=== PATIENT | female | born 1995 | race Hispanic/Latino ===

== ENCOUNTER 2017-08-10 20:35 | Emergency (ER) | payer MEDICAID ==
--- NOTE | 2017-08-10 20:43 | EDM.PDOC ---
ED HPI GENERAL MEDICAL PROBLEM - General Chief Complaint: Burn Stated Complaint: PT BURN LT HAND Time Seen by Provider: 08/10/17 20:43 Source of Information: Reports: Patient - History of Present Illness INITIAL COMMENTS - FREE TEXT/NARRATIVE: HISTORY AND PHYSICAL: History of present illness: [Patient was pouring hot cooking grease/oil into a soup can just prior to arrival, the can overflowed burning the palmar aspect of the second third fourth digits second-degree with blistering sensation intact/painful. No circumferential madesn concerning the digits unaffected above the wrist entirely Ms. neurovascularly intact ] Review of systems: As per history of present illness and below otherwise all systems reviewed and negative. Past medical history: As per history of present illness and as reviewed below otherwise noncontributory. Surgical history: As per history of present illness and as reviewed below otherwise noncontributory. Social history: No reported history of drug or alcohol abuse. Family history: As per history of present illness and as reviewed below otherwise noncontributory. Physical exam: HEENT: Atraumatic, normocephalic, pupils reactive, negative for conjunctival pallor or scleral icterus, mucous membranes moist, throat clear, neck supple, nontender, trachea midline. Lungs: Clear to auscultation, breath sounds equal bilaterally, chest nontender. Heart: S1S2, regular, negative for clicks, rubs, or JVD. Abdomen: Soft, nondistended, nontender. Negative for masses or hepatosplenomegaly. Negative for costovertebral tenderness. Pelvis: Stable nontender. Genitourinary: Deferred. Rectal: Deferred. Extremities: Atraumatic, negative for cords or calf pain. Neurovascular unremarkable. Neuro: Awake, alert, oriented. Cranial nerves II through XII unremarkable. Cerebellum unremarkable. Motor and sensory unremarkable throughout. Exam nonfocal. Left hand as per history of present illness otherwise unremarkable Diagnostics: []Clinical Therapeutics: []Tetanus status was updated one year prior per patient hence tetanus not provided Silvadene Morphine 2 mg IM [place] Silvadene 2 dressings Follow-up Lauren Li on Friday Impression: []Second-degree madsen involving less than 1% total body surface area No circumferential madsen Definitive disposition and diagnosis as appropriate pending reevaluation and review of above. Left Hand Pain Score (Numeric/FACES): 10 - Related Data Allergies Allergy/AdvReac Type Severity Reaction Status Date / Time No Known Allergies Allergy Verified 08/10/17 20:38 Home Meds: Home Meds . [No Known Home Meds] 08/10/17 [History] Past Medical History - Past Health History Medical/Surgical History: Denies Medical/Surgical History Social & Family History - Tobacco Use Smoking Status *Q: Never Smoker - Caffeine Use Caffeine Use: Reports: Soda - Recreational Drug Use Recreational Drug Use: No ED ROS GENERAL - Review of Systems Review Of Systems: ROS reveals no pertinent complaints other than HPI. ED EXAM, GENERAL - Physical Exam Exam: See Below Course - Vital Signs Last Recorded V/S: Last Vital Signs Temp 98.1 F 08/10/17 20:41 Pulse 84 08/10/17 20:41 Resp 18 08/10/17 20:41 BP 126/85 08/10/17 20:41 Pulse Ox 99 08/10/17 20:41 - Orders/Labs/Meds Orders: Active Orders 24 hr Category Date Time Status Vaccines to be Administered [RC] PER UNIT ROUTINE Care 08/10/17 20:45 Active Meds: Medications Discontinued Medications Generic Name Dose Route Start Last Admin Trade Name Freq PRN Reason Stop Dose Admin Diphtheria/Tetanus/Acell Pertussis 0.5 ml 08/10/17 20:45 Adacel IM 08/10/17 20:46 .ONCE ONE Morphine Sulfate 2 mg 08/10/17 20:46 Morphine IV 08/10/17 20:47 ONETIME ONE Departure - Departure Time of Disposition: 21:10 Disposition: Home, Self-Care 01 Condition: Good Clinical Impression: Madsen of multiple specified sites - Discharge Information Forms: ED Department Discharge Additional Instructions: Silvadene applied 2 times daily 10 days Follow-up with Lauren Davidson md--- plastic surgeon and hand specialist tomorrow morning ER referral provided Return if symptoms persist or worsen [facility] - Plastic Surgery Professional [address], [address] [place] [address] The following information is given to patients seen in the emergency department who are being discharged to home. This information is to outline your options for follow-up care. We provide all patients seen in our emergency department with a follow-up referral. The need for follow-up, as well as the timing and circumstances, are variable depending upon the specifics of your emergency department visit. If you don't have a primary care physician on staff, we will provide you with a referral. We always advise you to contact your personal physician following an emergency department visit to inform them of the circumstance of the visit and for follow-up with them and/or the need for any referrals to a consulting specialist. The emergency department will also refer you to a specialist when appropriate. This referral assures that you have the opportunity for follow-up care with a specialist. All of these measure are taken in an effort to provide you with optimal care, which includes your follow-up. Under all circumstances we always encourage you to contact your private physician who remains a resource for coordinating your care. When calling for follow-up care, please make the office aware that this follow-up is from your recent emergency room visit. If for any reason you are refused follow-up, please contact the [facility] emergency department at and asked to speak to the emergency department charge nurse. - My Orders Last 24 Hours: My Active Orders 08/10/17 20:45 Vaccines to be Administered [RC] PER UNIT ROUTINE - Assessment/Plan Last 24 Hours: My Active Orders 08/10/17 20:45 Vaccines to be Administered [RC] PER UNIT ROUTINE
[2017-08-10] MEDS ORDERED: Diphtheria,Pertussis(Acell),Tetanus Vaccine 0.5 ML Syringe IM ONE (20:45)
[2017-08-10] MEDS ORDERED: Morphine 10 MG/ML Syringe IV ONE (20:46)
[2017-08-10] MEDS ORDERED: Silver Sulfadiazine 1% Crm 50 GM Tube TOP ONE (21:12)
== END 2017-08-10 21:55 | disposition home or self-care (01) ==
LOC: MW.ED 20:35
DX: T23.232A Burn of second degree of multiple left fingers (nail), not including thumb, initial encounter (principal); X10.2XXA Contact with fats and cooking oils, initial encounter
CPT/HCPCS: 16020; 96374; 99283; A9270; J2270

== ENCOUNTER 2017-09-19 16:24 | Emergency (ER) | payer MEDICAID ==
--- NOTE | 2017-09-19 17:19 | EDM.PDOC ---
ED HPI GENERAL MEDICAL PROBLEM - General Chief Complaint: Back Pain or Injury Stated Complaint: PT HURAshvin BACK Time Seen by Provider: 09/19/17 17:10 Source of Information: Reports: Patient History Limitations: Reports: No Limitations - History of Present Illness INITIAL COMMENTS - FREE TEXT/NARRATIVE: HISTORY AND PHYSICAL: History of present illness: [she comes to the emergency room complaining of right-sided low back pain. States that she bent over with one leg bent and one leg straight to pick something up off the floor today. She immediately felt a pain in her right low back and has had pain ever since. She's having difficulty standing and laying due to discomfort. She is currently breast-feeding and is having difficulty laying down beside her due to the pain in her back. She denies having any numbness or tingling down her legs or into her feet. Pain remains just in her right low back and into her right buttock. No radiation down her legs. No difficulty with bowel or bladder. No fever or chills. ] Review of systems: As per history of present illness and below otherwise all systems reviewed and negative. Past medical history: As per history of present illness and as reviewed below otherwise noncontributory. Surgical history: As per history of present illness and as reviewed below otherwise noncontributory. Social history: No reported history of drug or alcohol abuse. Family history: As per history of present illness and as reviewed below otherwise noncontributory. Physical exam: HEENT: Atraumatic, normocephalic. Back: low back is normal in appearance. NO rashes or abnormalities. No tenderness over spinal processes or bony prominences. Tender with palpation over the right lumbar musculature. Diminished range of motion due to discomfort. Patellar reflexes are 2+ and equal bilaterally. Sensation is intact bilaterally. Extremities: Atraumatic, Neurovascular unremarkable. Neuro: Awake, alert, oriented. Motor and sensory unremarkable throughout. Exam nonfocal. Impression: [low back strain] Plan: [Discussed with patient her symptoms appear to be due to too low back strain. Recommend heat alternating with ice. [id number] analgesics and anti- inflammatories as needed. Gentle stretching which are demonstrated for her. Follow-up with PCP. She is in agreement with today's plan. All of her questions are answered and concerns are addressed.] Definitive disposition and diagnosis as appropriate pending reevaluation and review of above. 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 ED EXAM,LOWER BACK PAIN/INJURY - Physical Exam Exam: See Below Course - Vital Signs Last Recorded V/S: Last Vital Signs Temp 97.7 F 09/19/17 16:46 Pulse 78 09/19/17 17:40 Resp 20 09/19/17 17:40 BP 108/57 L 09/19/17 17:40 Pulse Ox 98 09/19/17 17:40 Departure - Departure Time of Disposition: 17:25 Disposition: Home, Self-Care 01 Condition: Good Clinical Impression: Low back strain - Discharge Information Instructions: Muscle Strain, [id number] Referrals: PCP,None [Primary Care Provider] - Forms: ED Department Discharge Additional Instructions: The following information is given to patients seen in the emergency department who are being discharged to home. This information is to outline your options for follow-up care. We provide all patients seen in our emergency department with a follow-up referral. The need for follow-up, as well as the timing and circumstances, are variable depending upon the specifics of your emergency department visit. If you don't have a primary care physician on staff, we will provide you with a referral. We always advise you to contact your personal physician following an emergency department visit to inform them of the circumstance of the visit and for follow-up with them and/or the need for any referrals to a consulting specialist. The emergency department will also refer you to a specialist when appropriate. This referral assures that you have the opportunity for follow-up care with a specialist. All of these measure are taken in an effort to provide you with optimal care, which includes your follow-up. Under all circumstances we always encourage you to contact your private physician who remains a resource for coordinating your care. When calling for follow-up care, please make the office aware that this follow-up is from your recent emergency room visit. If for any reason you are refused follow-up, please contact the [facility] emergency department at and asked to speak to the emergency department charge nurse. [facility] [address] [place] [id number] Establish care with a local primary care provider at the clinic listed above. Ibuprofen/Motrin 200 mg. Take 3 tablets every 6 hours with food. You may take Tylenol 500 mg every 4 hours as needed for pain. Alternate heat and ice. Perform low back stretches gently. Make sure his sleeping your bad and not on the couch. Return to ER as needed as discussed.
== END 2017-09-19 17:40 | disposition home or self-care (01) ==
LOC: MW.ED 16:24
DX: S39.012A Strain of muscle, fascia and tendon of lower back, initial encounter (principal); X50.1XXA Overexertion from prolonged static or awkward postures, initial encounter
CPT/HCPCS: 99283

== ENCOUNTER 2018-06-02 03:19 | Inpatient (IN) | payer MEDICAID ==
[2018-06-02] MEDS ORDERED: Citric Acid/Sodium Citrate Solution 30 ML Cup PO ONE (04:31)
[2018-06-02] MEDS ORDERED: Sodium Chloride 0.9% 2.5 ML Syringe FLUSH PRN (04:31)
[2018-06-02] MEDS ORDERED: Sodium Chloride 0.9% 10 ML Syringe FLUSH PRN (04:31)
[2018-06-02] MEDS ORDERED: Oxytocin/0.9 % Sodium Chloride 30 UNIT/500 ML BAG IV SCH (04:45)
[2018-06-02] MEDS: Lactated Ringers 1,000 ML IV SCH ×2 (05:12→05:37)
[2018-06-02] MEDS ORDERED: Ondansetron 4 MG/2 ML SDV ONE (05:24)
[2018-06-02] MEDS ORDERED: Morphine PF 1 MG/ML Amp ONE (05:25)
[2018-06-02] MEDS ORDERED: ceFAZolin/Dextrose,Iso-Osmotic 2 GM/50 ML Duplex Bag IV ONE (05:27)
--- NOTE | 2018-06-02 05:36 | PCM.LDHP ---
L&D History of Present Illness - General Date of Service: 06/02/18 Admit Problem/Dx: Patient Status Order with Admit Dx/Problem 06/02/18 03:50 Patient Status [ADT] Routine 06/02/18 04:32 Patient Status [ADT] Routine Admission Diagnosis/Problem Admission Diagnosis/Problem - planned Source of Information: Patient History Limitations: Reports: No Limitations - History of Present Illness Improves with: Reports: None Worsens with: Reports: None Associated Symptoms: Reports: N - Related Data Allergies/Adverse Reactions: Allergies Allergy/AdvReac Type Severity Reaction Status Date / Time No Known Allergies Allergy Verified 06/01/18 09:29 Home Medications: Home Meds Vit No.78/Iron/Fa [Prenatabs FA] 1 each PO DAILY 05/20/18 [History] Past Medical History - Past Health History Medical/Surgical History: Denies Medical/Surgical History Gastrointestinal History: Reports: None Genitourinary History: Reports: None [employer] History: Reports: Other OB/BYN History: 3 times Endocrine/Metabolic History: Reports: Obesity/BMI 30+ - Past Surgical History Head Surgeries/Procedures: Reports: None GI Surgical History: Reports: Cholecystectomy Female Surgical History: Reports: Section, Other (See Below) Other Female Surgeries/Procedures: excision of axillary cyst at 7 y/o Social & Family History - Family History Family Medical History: Noncontributory - Tobacco Use Smoking Status *Q: Never Smoker Second Hand Smoke Exposure: No - Caffeine Use Caffeine Use: Reports: Soda - Recreational Drug Use Recreational Drug Use: No H&P Review of Systems - Review of Systems: Review Of Systems: See Below General: Reports: No Symptoms HEENT: Reports: No Symptoms Pulmonary: Reports: No Symptoms Cardiovascular: Reports: No Symptoms Gastrointestinal: Reports: No Symptoms Genitourinary: Reports: No Symptoms Musculoskeletal: Reports: No Symptoms Skin: Reports: No Symptoms Psychiatric: Reports: No Symptoms Neurological: Reports: No Symptoms Hematologic/Lymphatic: Reports: No Symptoms Immunologic: Reports: No Symptoms L&D Exam - Exam Exam: See Below - Vital Signs Weight: 117.027 kg - OB Specific Fundal Height In cm: 38 Contraction Intensity: Mild to Moderate Movement: Active Heart Tones: Present Presentation: Vertex - Cintron Score Cintron Score Cervix Position: Midposition Cintorn Score Consistency: Medium Cintron Score Effacement: 51-70% Cintron Score Dilation: 1-2 cm Cintron Score Infant's Station: -2 Cintron Score Total: 6 - Exam General: Alert, Oriented HEENT: PERRLA, Conjunctiva Clear, EACs Clear, EOMI, Hearing Intact, Mucosa Moist & Leslie, Nares Patent, Normal Nasal Septum, Posterior Pharynx Clear, TMs Clear Neck: Supple, Trachea Midline Lungs: Clear to Auscultation, Normal Respiratory Effort Cardiovascular: Regular Rate, Regular Rhythm GI/Abdominal Exam: Normal Bowel Sounds, Soft, Non-Tender, No Organomegaly, No Distention, No Abnormal Bruit, No Mass, Pelvis Stable Rectal Exam: Normal Exam, Normal Rectal Tone Genitourinary: Normal external exam, Normal bimanual exam, Normal speculum exam Back Exam: Normal Inspection, Full Range of Motion Extremities: Normal Inspection, Normal Range of Motion, Non-Tender, No Pedal Edema, Normal Capillary Refill Skin: Warm, Dry, Intact Neurological: Cranial Nerves Intact, Reflexes Equal Bilateral Psychiatric: Alert, Normal Affect, Normal Mood - Patient Data Lab Results Last 24 hrs: Laboratory Results - last 24 hr 06/02/18 06/02/18 06/02/18 Range/Units 03:45 04:20 04:45 WBC 8.19 (4.0-11.0) K/uL RBC 4.08 L (4.30-5.90) M/uL Hgb 11.5 L (12.0-16.0) g/dL Hct 35.1 L (36.0-46.0) % MCV 86.0 (80.0-98.0) fL MCH 28.2 (27.0-32.0) pg MCHC 32.8 (31.0-37.0) g/dL RDW Std Deviation 43.9 (28.0-62.0) fl RDW Coeff of Zuri 14 (11.0-15.0) % Plt Count 248 (150-400) K/uL MPV 10.60 (7.40-12.00) fL Nucleated RBC % 0.0 /100WBC Nucleated RBCs # 0 K/uL Membrane Rupture Cancelled POSITIVE Result Diagrams: 06/02/18 04:45 Problem List Initiated/Reviewed/Updated: Yes Orders Last 24hrs: Active Orders 24 hr Category Date Time Status Patient Status [ADT] Routine ADT 06/02/18 04:32 Active Non Stress Test [RC] PER UNIT ROUTINE Care 06/02/18 03:50 Active Non Stress Test [RC] PER UNIT ROUTINE Care 06/02/18 04:32 Active Notify Provider Vital Signs [RC] PRN Care 06/02/18 04:33 Active Procedure Site Prep Instruct [RC] ASDIRECTED Care 06/02/18 04:32 Active Up ad Gila [RC] ASDIRECTED Care 06/02/18 03:50 Active Up ad Gila [RC] ASDIRECTED Care 06/02/18 04:32 Active Vaginal Exam [RC] Click to Edit Care 06/02/18 03:50 Active Verify Patient Consent Obtain [RC] ASDIRECTED Care 06/02/18 04:32 Active Vital Signs [RC] PER UNIT ROUTINE Care 06/02/18 03:50 Active Vital Signs [RC] PER UNIT ROUTINE Care 06/02/18 04:32 Active TYPE AND SCREEN [BBK] Routine Lab 06/02/18 04:45 Received Lactated Ringers [Ringers, Lactated] 1,000 ml Med 06/02/18 04:45 Active IV BOLUS Oxytocin/0.9 % Sodium Chloride [Oxytocin 30 Unit/500 ML Med 06/02/18 04:45 Active -NS] 30 unit in 500 ml IV TITRATE Sodium Chloride 0.9% [Saline Flush] Med 06/02/18 04:31 Active 10 ml FLUSH ASDIRECTED PRN Sodium Chloride 0.9% [Saline Flush] Med 06/02/18 04:31 Active 2.5 ml FLUSH ASDIRECTED PRN ceFAZolin [Ancef] 2 gm Med 06/02/18 07:00 Active Premix Bag 1 bag IV ONETIME Peripheral IV Insertion Adult [OM.PC] Routine Oth 06/02/18 04:32 Ordered Schedule Procedure [COMM] Per Unit Routine Oth 06/02/18 04:32 Ordered Resuscitation Status Routine Resus Stat 06/02/18 03:50 Ordered Medication Orders Oxytocin/Sodium Chloride (Oxytocin 30 Unit/500 Ml-Ns) 30 unit in 500 mls @ 250 mls/hr IV TITRATE BISI Lactated Ringer's (Ringers, Lactated) 1,000 mls @ 500 mls/hr IV BOLUS BISI Last Admin: 06/02/18 05:12 Dose: 500 mls/hr Cefazolin Sodium/Dextrose 2 gm (/ Premix) 50 mls @ 100 mls/hr IV ONETIME ONE Stop: 06/02/18 07:29 Sodium Chloride (Saline Flush) 10 ml FLUSH ASDIRECTED PRN PRN Reason: Keep Vein Open Sodium Chloride (Saline Flush) 2.5 ml FLUSH ASDIRECTED PRN PRN Reason: Keep Vein Open Assessment/Plan Comment:: Term , previous C/section X2 in active labor with SROM.
[2018-06-02] MEDS ORDERED: Oxytocin/0.9 % Sodium Chloride 30 UNIT/500 ML BAG ONE (05:39)
--- NOTE | 2018-06-02 06:04 | PCM.PREANE ---
Preanesthetic Assessment - Procedure Proposed Procedure: Repeat , 2 prior - Anesthesia/Transfusion/Family Hx Anesthesia History: Prior Anesthesia Without Reaction Family History of Anesthesia Reaction: No Transfusion History: No Prior Transfusion(s) Intubation History: Unknown - Review of Systems General: Other ( and attendant problems, acive labor w/SROM) Pulmonary: No Symptoms Cardiovascular: No Symptoms Gastrointestinal: Other (GERD of ) Neurological: Gait Disturbance (due to ) - Physical Assessment NPO Status Date: 06/01/18 NPO Status Time: 22:00 Height: 5 ft 5 in Weight: 258 lb ASA Class: 2E Mental Status: Alert & Oriented x3 Airway Class: Mallampati = 2 Dentition: Reports: Normal Dentition Thyro-Mental Finger Breadths: 3 Mouth Opening Finger Breadths: 3 ROM/Head Extension: Limited/Partial (short neck) Lungs: Clear to Auscultation, Normal Respiratory Effort Cardiovascular: Regular Rate, Regular Rhythm - Lab Values: Laboratory Last Values WBC 8.19 K/uL (4.0-11.0) 06/02/18 04:45 RBC 4.08 M/uL (4.30-5.90) L 06/02/18 04:45 Hgb 11.5 g/dL (12.0-16.0) L 06/02/18 04:45 Hct 35.1 % (36.0-46.0) L 06/02/18 04:45 MCV 86.0 fL (80.0-98.0) 06/02/18 04:45 MCH 28.2 pg (27.0-32.0) 06/02/18 04:45 MCHC 32.8 g/dL (31.0-37.0) 06/02/18 04:45 RDW Std Deviation 43.9 fl (28.0-62.0) 06/02/18 04:45 RDW Coeff of Zuri 14 % (11.0-15.0) 06/02/18 04:45 Plt Count 248 K/uL (150-400) 06/02/18 04:45 MPV 10.60 fL (7.40-12.00) 06/02/18 04:45 Nucleated RBC % 0.0 /100WBC 06/02/18 04:45 Nucleated RBCs # 0 K/uL 06/02/18 04:45 Membrane Rupture POSITIVE 06/02/18 04:20 Blood Type O POSITIVE 06/02/18 04:45 Antibody Screen NEGATIVE 06/02/18 04:45 - Allergies Allergies/Adverse Reactions: Allergies Allergy/AdvReac Type Severity Reaction Status Date / Time No Known Allergies Allergy Verified 06/01/18 09:29 - Blood Product(s) Available: PRBC (T and S) - Anesthesia Plan Pre-Op Medication Ordered: Antacids - Acknowledgements Anesthesia Type Planned: Spinal Pt an Appropriate Candidate for the Planned Anesthesia: Yes Alternatives and Risks of Anesthesia Discussed w Pt/Guardian: Yes Pt/Guardian Understands and Agrees with Anesthesia Plan: Yes PreAnesthesia Questionnaire - Past Health History Medical/Surgical History: Denies Medical/Surgical History Gastrointestinal History: Reports: None Genitourinary History: Reports: None 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 OB/BYN History: 3 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 Endocrine/Metabolic History: Reports: Obesity/BMI 30+ - Past Surgical History Head Surgeries/Procedures: Reports: None GI Surgical History: Reports: Cholecystectomy Female Surgical History: Reports: Section, Other (See Below) Other Female Surgeries/Procedures: excision of axillary cyst at 7 y/o - SUBSTANCE USE Smoking Status *Q: Never Smoker Second Hand Smoke Exposure: No Recreational Drug Use History: No - HOME MEDS Home Medications: Home Meds Vit No.78/Iron/Fa [Prenatabs FA] 1 each PO DAILY 05/20/18 [History] - CURRENT (IN HOUSE) MEDS Current Meds: Current Medications Oxytocin/Sodium Chloride (Oxytocin 30 Unit/500 Ml-Ns) 30 unit in 500 mls @ 250 mls/hr IV TITRATE BISI Lactated Ringer's (Ringers, Lactated) 1,000 mls @ 500 mls/hr IV BOLUS BISI Last Admin: 06/02/18 05:37 Dose: 500 mls/hr Cefazolin Sodium/Dextrose 2 gm (/ Premix) 50 mls @ 100 mls/hr IV ONETIME ONE Stop: 06/02/18 07:29 Sodium Chloride (Saline Flush) 10 ml FLUSH ASDIRECTED PRN PRN Reason: Keep Vein Open Sodium Chloride (Saline Flush) 2.5 ml FLUSH ASDIRECTED PRN PRN Reason: Keep Vein Open Discontinued Medications Cefazolin Sodium/Dextrose (Ancef) Confirm Administered Dose 2 gm IV .STK-MED ONE Stop: 06/02/18 05:28 Citric Acid/Sodium Citrate (Bicitra Solution) 30 ml PO ONETIME ONE Stop: 06/02/18 04:32 Last Admin: 06/02/18 05:38 Dose: 30 ml Oxytocin/Sodium Chloride (Oxytocin 30 Unit/500 Ml-Ns) Confirm Administered Dose 30 unit in 500 mls @ as directed .ROUTE .STK-MED ONE Stop: 06/02/18 05:40 Morphine Sulfate (Duramorph Pf) Confirm Administered Dose 1 mg .ROUTE .STK-MED ONE Stop: 06/02/18 05:26 Ondansetron HCl (Zofran) Confirm Administered Dose 4 mg .ROUTE .STK-MED ONE Stop: 06/02/18 05:25
[2018-06-02] MEDS ORDERED: ePHEDrine 50 MG/ML SDV ONE (06:10)
[2018-06-02] MEDS ORDERED: Octyl 2-Cyanoacrylate 1 Tube ONE (06:35)
[2018-06-02] MEDS ORDERED: Ibuprofen 800 MG Tab PO PRN (06:41)
[2018-06-02] MEDS ORDERED: Acetaminophen/oxyCODONE 325-5 MG Tab PO PRN ×3 (06:41→07:17)
[2018-06-02] MEDS ORDERED: diphenhydrAMINE 50 MG/ML SDV IVPUSH PRN ×2 (06:41→07:15)
[2018-06-02] MEDS ORDERED: Bisacodyl 10 MG Supp RECTAL PRN (06:41)
[2018-06-02] MEDS ORDERED: Ondansetron 4 MG/2 ML SDV IV PRN (06:41)
[2018-06-02] MEDS ORDERED: Lanolin 100% Cream 7 GM Tube TOP PRN (06:41)
--- NOTE | 2018-06-02 06:44 | PCM.OPNOTE ---
- General Post-Op/Procedure Note Date of Surgery/Procedure: 06/02/18 Operative Procedure(s): Repeat C/Section. Pre Op Diagnosis: IUP term previous C/section in labor. Post-Op Diagnosis: Same Anesthesia Technique: Spinal Primary Surgeon: Praneeth Santos EBL in mLs: 700 Complications: None Condition: Good
[2018-06-02] MEDS ORDERED: Lactated Ringers 1,000 ML IV SCH (06:45)
[2018-06-02] MEDS ORDERED: ceFAZolin 2 GM in Premix Bag 1 BAG IV ONE (07:00)
[2018-06-02] MEDS: Ketorolac 30 MG/ML SDV IVPUSH SCH ×3 (07:03→18:47)
[2018-06-02] MEDS ORDERED: Nalbuphine 10 MG/1 ML Vial IVPUSH PRN (07:15)
[2018-06-02] MEDS ORDERED: Naloxone 0.4 MG/ML Syringe IVPUSH PRN (07:15)
[2018-06-02] MEDS ORDERED: fentaNYL 100 MCG/2 ML SDV IVPUSH PRN (07:17)
--- NOTE | 2018-06-02 07:21 | PCM.POSTAN ---
POST ANESTHESIA ASSESSMENT - MENTAL STATUS Mental Status: Alert, Oriented - RESPIRATORY Respiratory Status: Respiratory Rate WNL, Airway Patent, O2 Saturation Stable - CARDIOVASCULAR CV Status: Pulse Rate WNL, Blood Pressure Stable - GASTROINTESTINAL GI Status: No Symptoms - PAIN Pain Score: 0 - POST OP HYDRATION Hydration Status: Adequate & Stable
[2018-06-02] MEDS: Docusate Sodium 100 MG Cap PO SCH ×2 (08:07→20:32)
--- NOTE | 2018-06-02 08:17 | OR ---
SURGEON: Praneeth Santos MD DATE OF PROCEDURE: 06/02/2018 PREOPERATIVE DIAGNOSES: 1. Intrauterine , term. 2. Previous section x2. 3. Spontaneous rupture of the membranes in early labor. POSTOPERATIVE DIAGNOSES: 1. Intrauterine , term. 2. Previous section x2. 3. Spontaneous rupture of the membranes in early labor. OPERATION PERFORMED: Repeat low transverse section. CYTOTECHNOLOGIST/HISTOTECHNOLOGIST: OR tech. ANESTHESIA: Spinal. ANESTHETISTS: Caity Moon and Saqib Good M.D. ESTIMATED BLOOD LOSS: 700 mL. OBSTETRICAL NURSE: Iwona Cancino MD COMPLICATIONS: None. FINDINGS: Female fetus. scores of 8 and 9. The weight is not available. INDICATION FOR SURGERY: This patient is 22. She had 2 previous sections. She is followed in our clinic primarily by me. She is supposed to have a section on June 04. However, the patient presented to Labor and Delivery earlier this morning with active labor and spontaneous rupture of the membranes. A repeat section is performed. PROCEDURE IN DETAIL: The patient was brought to the OR, properly identified, and after adequate level of spinal anesthesia with a Guardado catheter in the bladder, the patient was prepped and draped in sterile fashion as usual. A low transverse Pfannenstiel skin incision through the old scar was done. The Merly's fascia and rectus fascia were opened in the direction of the incision. The 2 recti muscles were , and peritoneal cavity was entered, making sure to make a room to accommodate the head of the fetus, and then low transverse uterine incision done and extended manually with hand. The fetus was in the vertex position, delivered without any problem, cried immediately. scores reported to be 8 and 9, and the weight was not available. The placenta delivered spontaneous, complete, and intact, and then a repair of the lower uterine segment was done with 2-0 Vicryl continuous interlocking in 2 layers, and then reperitonealization of the lower uterine segment done with 3-0 Vicryl continuous. The peritoneal cavity was evacuated completely from all blood and blood clots and closed with 3-0 Vicryl continuous. The rectus fascia was closed with #1 PDS double strand continuous, the Merly's fascia with 3-0 Vicryl continuous, and the skin closed with skin clips, Insorb, and Dermabond. Instrument and sponge count was correct x2. The patient tolerated the procedure well and went to recovery room in stable general condition. RAPHAEL / KRISTOFER /[id number]
--- NOTE | 2018-06-02 16:51 | PCM48HPAN ---
Post Anesthesia Note - EVALUATION WITHIN 48HRS OF ANESTHETIC Vital Signs in Normal Range: Yes Patient Participated in Evaluation: Yes Respiratory Function Stable: Yes Airway Patent: Yes Cardiovascular Function Stable: Yes Hydration Status Stable: Yes Pain Control Satisfactory: Yes Nausea and Vomiting Control Satisfactory: Yes Mental Status Recovered: Yes Resp Rate: 18 - COMMENTS/OBSERVATIONS Free Text/Narrative:: Denies any complaints at this time.
[2018-06-03] MEDS: Ketorolac 30 MG/ML SDV IVPUSH SCH ×2 (00:43→06:25)
--- NOTE | 2018-06-03 08:28 | PCM.PNPP ---
- General Info Date of Service: 06/03/18 Functional Status: Reports: Pain Controlled - Review of Systems General: Reports: No Symptoms HEENT: Reports: No Symptoms Pulmonary: Reports: No Symptoms Cardiovascular: Reports: No Symptoms Gastrointestinal: Reports: No Symptoms Genitourinary: Reports: No Symptoms Musculoskeletal: Reports: No Symptoms Skin: Reports: No Symptoms Neurological: Reports: No Symptoms Psychiatric: Reports: No Symptoms - General Info Date of Service: 06/03/18 - Patient Data Vital Signs - Most Recent: Last Vital Signs Temp 36.4 C 06/03/18 04:00 Pulse 58 L 06/03/18 06:00 Resp 14 06/03/18 06:00 BP 108/54 L 06/03/18 04:00 Pulse Ox 97 06/03/18 06:00 Weight - Most Recent: 117.027 kg I&O - Last 24 Hours: Intake & Output 06/02/18 06/03/18 06/03/18 22:59 06:59 14:59 Intake Total 2114 2100 Output Total 1000 2075 Balance 1114 25 Lab Results - Last 24 Hours: Laboratory Results - last 24 hr 06/03/18 Range/Units 05:23 Hgb 10.3 L (12.0-16.0) g/dL Hct 31.7 L (36.0-46.0) % Med Orders - Current: Current Medications Bisacodyl (Dulcolax) 10 mg RECTAL ONETIME PRN PRN Reason: Constipation Diphenhydramine HCl (Benadryl) 25 mg IVPUSH Q6H PRN PRN Reason: Itching or Nausea Docusate Sodium (Colace) 100 mg PO BID [facility] Last Admin: 06/02/18 20:32 Dose: 100 mg Emollient Ointment (Lansinoh Hpa) 0 gm TOP ASDIRECTED PRN PRN Reason: Sore Nipples Fentanyl (Sublimaze) 25 - 50 mcg IVPUSH Q30M PRN PRN Reason: Pain Oxytocin/Sodium Chloride (Oxytocin 30 Unit/500 Ml-Ns) 30 unit in 500 mls @ 250 mls/hr IV TITRATE [facility] Lactated Ringer's (Ringers, Lactated) 1,000 mls @ 500 mls/hr IV BOLUS [facility] Last Admin: 06/02/18 05:37 Dose: 500 mls/hr Lactated Ringer's (Ringers, Lactated) 1,000 mls @ 125 mls/hr IV ASDIRECTED [facility]IS[facility] Last Admin: 06/02/18 08:40 Dose: 125 mls/hr Ibuprofen (Motrin) 800 mg PO Q8H PRN PRN Reason: mild pain or fever Ondansetron HCl (Zofran) 4 mg IV Q4H PRN PRN Reason: Nausea/Vomiting Oxycodone/Acetaminophen (Percocet 325-5 Mg) 1 tab PO Q4H PRN PRN Reason: Pain (moderate 4-6) Oxycodone/Acetaminophen (Percocet 325-5 Mg) 2 tab PO Q4H PRN PRN Reason: Pain (moderate 4-6) Oxycodone/Acetaminophen (Percocet 325-5 Mg) 1 - 2 tab PO Q6H PRN PRN Reason: Pain Stop: 06/04/18 14:00 Sodium Chloride (Saline Flush) 10 ml FLUSH ASDIRECTED PRN PRN Reason: Keep Vein Open Sodium Chloride (Saline Flush) 2.5 ml FLUSH ASDIRECTED PRN PRN Reason: Keep Vein Open Discontinued Medications Cefazolin Sodium/Dextrose (Ancef) Confirm Administered Dose 2 gm IV .STK-MED ONE Stop: 06/02/18 05:28 Citric Acid/Sodium Citrate (Bicitra Solution) 30 ml PO ONETIME ONE Stop: 06/02/18 04:32 Last Admin: 06/02/18 05:38 Dose: 30 ml Diphenhydramine HCl (Benadryl) 25 mg IVPUSH Q4H PRN PRN Reason: Itching Stop: 06/03/18 07:16 Ephedrine Sulfate (Ephedrine Sulfate) Confirm Administered Dose 50 mg .ROUTE .STK-MED ONE Stop: 06/02/18 06:11 Cefazolin Sodium/Dextrose 2 gm (/ Premix) 50 mls @ 100 mls/hr IV ONETIME ONE Stop: 06/02/18 07:29 Last Admin: 06/02/18 10:15 Dose: Not Given Oxytocin/Sodium Chloride (Oxytocin 30 Unit/500 Ml-Ns) Confirm Administered Dose 30 unit in 500 mls @ as directed .ROUTE .STK-MED ONE Stop: 06/02/18 05:40 Last Admin: 06/02/18 10:15 Dose: Not Given Ibuprofen (Motrin) 800 mg PO Q8H PRN PRN Reason: mild pain or fever Ketorolac Tromethamine (Toradol) 30 mg IVPUSH Q6H BISI Stop: 06/03/18 06:46 Last Admin: 06/03/18 06:25 Dose: 30 mg Morphine Sulfate (Duramorph Pf) Confirm Administered Dose 1 mg .ROUTE .STK-MED ONE Stop: 06/02/18 05:26 Nalbuphine HCl (Nubain) 5 mg IVPUSH Q3H PRN PRN Reason: Pruritis Stop: 06/03/18 07:16 Last Admin: 06/02/18 08:08 Dose: 5 mg Naloxone HCl (Narcan) 0.1 mg IVPUSH ONETIME PRN PRN Reason: Other Stop: 06/03/18 07:16 Octyl Cyanoacrylate (Dermabond Advance) Confirm Administered Dose 1 applic .ROUTE .STK-MED ONE Stop: 06/02/18 06:36 Ondansetron HCl (Zofran) Confirm Administered Dose 4 mg .ROUTE .STK-MED ONE Stop: 06/02/18 05:25 - Infant Interaction Disposition, : in Room with Family Infant Interaction: Holding Infant Feeding: Attempted ; Nursed Fair/Poor Support Person: Significant Other - Recovery Exam Fundal Tone: Firm Fundal Level: At Umbilicus Fundal Placement: Midline Lochia Amount: Small Lochia Color: Rubra/Red Perineum Description: Intact, Minimal Bruising/Swelling Episiotomy/Laceration: Approximated Bladder Status: Indwelling Catheter in Place Urinary Elimination: Indwelling Catheter - Exam General: Alert, Oriented HEENT: Pupils Equal Neck: Supple Lungs: Clear to Auscultation, Normal Respiratory Effort Cardiovascular: Regular Rate, Regular Rhythm GI/Abdominal Exam: Normal Bowel Sounds, Soft, Non-Tender, No Organomegaly, No Distention, No Abnormal Bruit, No Mass, Pelvis Stable Extremities: Normal Inspection, Normal Range of Motion, Non-Tender, No Pedal Edema, Normal Capillary Refill Skin: Warm, Dry, Intact Wound/Incisions: Healing Well Neurological: No New Focal Deficit Psy/Mental Status: Alert, Normal Affect, Normal Mood - Problem List Review Problem List Initiated/Reviewed/Updated: Yes - My Orders Last 24 Hours: My Active Orders 06/02/18 09:00 Docusate Sodium [Colace] 100 mg PO BID 06/03/18 12:00 Ibuprofen [Motrin] 800 mg PO Q8H PRN - Assessment Assessment:: doing well will discharde leydi - Plan Plan:: Term , previous C/section X2 in active labor with SROM.
[2018-06-03] MEDS: Docusate Sodium 100 MG Cap PO SCH ×2 (08:51→20:29)
[2018-06-03] MEDS ORDERED: Ibuprofen 800 MG Tab PO PRN (12:00)
[2018-06-04] MEDS: Docusate Sodium 100 MG Cap PO SCH (08:32)
--- NOTE | 2018-06-04 09:44 | PCM.DCSUM1 ---
Discharge Summary - Hospital Course Diagnosis: Stroke: No - Discharge Data Discharge Date: 06/04/18 Discharge Disposition: Home, Self-Care 01 Condition: Good - Patient Summary/Data Operative Procedure(s) Performed: Repeat C/Section. - Patient Instructions Activity: As Tolerated Driving: Do Not Drive Showering/Bathing: January Shower Notify Provider of: Fever - Discharge Plan Home Medications: Home Meds Vit No.78/Iron/Fa [Prenatabs FA] 1 each PO DAILY 05/20/18 [History] Patient Handouts: Home Care Instructions for Mom Referrals: [facility] [Outside] Praneeth Santos MD [Physician] - ( week- June 09 @ 10:45am w/ Dr. Santos week- July 14 @ 10:45am w/ Dr. Santos ) - General Info Date of Service: 06/04/18 Functional Status: Reports: Pain Controlled - Review of Systems General: Reports: No Symptoms HEENT: Reports: No Symptoms Pulmonary: Reports: No Symptoms Cardiovascular: Reports: No Symptoms Gastrointestinal: Reports: No Symptoms Genitourinary: Reports: No Symptoms Musculoskeletal: Reports: No Symptoms Skin: Reports: No Symptoms Neurological: Reports: No Symptoms Psychiatric: Reports: No Symptoms - Patient Data Vitals - Most Recent: Last Vital Signs Temp 36.2 C 06/04/18 07:38 Pulse 70 06/04/18 07:38 Resp 16 06/04/18 07:38 BP 115/70 06/04/18 07:38 Pulse Ox 98 06/04/18 07:38 Weight - Most Recent: 117.027 kg Med Orders - Current: Current Medications Bisacodyl (Dulcolax) 10 mg RECTAL ONETIME PRN PRN Reason: Constipation Diphenhydramine HCl (Benadryl) 25 mg IVPUSH Q6H PRN PRN Reason: Itching or Nausea Docusate Sodium (Colace) 100 mg PO BID [facility] Last Admin: 06/04/18 08:32 Dose: Not Given Emollient Ointment (Lansinoh Hpa) 0 gm TOP ASDIRECTED PRN PRN Reason: Sore Nipples Fentanyl (Sublimaze) 25 - 50 mcg IVPUSH Q30M PRN PRN Reason: Pain Oxytocin/Sodium Chloride (Oxytocin 30 Unit/500 Ml-Ns) 30 unit in 500 mls @ 250 mls/hr IV TITRATE [facility] Lactated Ringer's (Ringers, Lactated) 1,000 mls @ 500 mls/hr IV BOLUS [facility] Last Admin: 06/02/18 05:37 Dose: 500 mls/hr Lactated Ringer's (Ringers, Lactated) 1,000 mls @ 125 mls/hr IV ASDIRECTED BISI Last Admin: 06/02/18 08:40 Dose: 125 mls/hr Ibuprofen (Motrin) 800 mg PO Q8H PRN PRN Reason: mild pain or fever Last Admin: 06/03/18 20:28 Dose: 800 mg Ondansetron HCl (Zofran) 4 mg IV Q4H PRN PRN Reason: Nausea/Vomiting Oxycodone/Acetaminophen (Percocet 325-5 Mg) 1 tab PO Q4H PRN PRN Reason: Pain (moderate 4-6) Oxycodone/Acetaminophen (Percocet 325-5 Mg) 2 tab PO Q4H PRN PRN Reason: Pain (moderate 4-6) Oxycodone/Acetaminophen (Percocet 325-5 Mg) 1 - 2 tab PO Q6H PRN PRN Reason: Pain Stop: 06/04/18 14:00 Sodium Chloride (Saline Flush) 10 ml FLUSH ASDIRECTED PRN PRN Reason: Keep Vein Open Sodium Chloride (Saline Flush) 2.5 ml FLUSH ASDIRECTED PRN PRN Reason: Keep Vein Open Discontinued Medications Cefazolin Sodium/Dextrose (Ancef) Confirm Administered Dose 2 gm IV .STK-MED ONE Stop: 06/02/18 05:28 Citric Acid/Sodium Citrate (Bicitra Solution) 30 ml PO ONETIME ONE Stop: 06/02/18 04:32 Last Admin: 06/02/18 05:38 Dose: 30 ml Diphenhydramine HCl (Benadryl) 25 mg IVPUSH Q4H PRN PRN Reason: Itching Stop: 06/03/18 07:16 Ephedrine Sulfate (Ephedrine Sulfate) Confirm Administered Dose 50 mg .ROUTE .STK-MED ONE Stop: 06/02/18 06:11 Cefazolin Sodium/Dextrose 2 gm (/ Premix) 50 mls @ 100 mls/hr IV ONETIME ONE Stop: 06/02/18 07:29 Last Admin: 06/02/18 10:15 Dose: Not Given Oxytocin/Sodium Chloride (Oxytocin 30 Unit/500 Ml-Ns) Confirm Administered Dose 30 unit in 500 mls @ as directed .ROUTE .STK-MED ONE Stop: 06/02/18 05:40 Last Admin: 06/02/18 10:15 Dose: Not Given Ibuprofen (Motrin) 800 mg PO Q8H PRN PRN Reason: mild pain or fever Ketorolac Tromethamine (Toradol) 30 mg IVPUSH Q6H [facility] Stop: 06/03/18 06:46 Last Admin: 06/03/18 06:25 Dose: 30 mg Morphine Sulfate (Duramorph Pf) Confirm Administered Dose 1 mg .ROUTE .STK-MED ONE Stop: 06/02/18 05:26 Nalbuphine HCl (Nubain) 5 mg IVPUSH Q3H PRN PRN Reason: Pruritis Stop: 06/03/18 07:16 Last Admin: 06/02/18 08:08 Dose: 5 mg Naloxone HCl (Narcan) 0.1 mg IVPUSH ONETIME PRN PRN Reason: Other Stop: 06/03/18 07:16 Octyl Cyanoacrylate (Dermabond Advance) Confirm Administered Dose 1 applic .ROUTE .STK-MED ONE Stop: 06/02/18 06:36 Ondansetron HCl (Zofran) Confirm Administered Dose 4 mg .ROUTE .STK-MED ONE Stop: 06/02/18 05:25 - Exam General: Reports: Alert, Oriented HEENT: Reports: Pupils Equal, Pupils Reactive, EOMI, Mucous Membr. Moist/[place] Neck: Reports: Supple Lungs: Reports: Clear to Auscultation, Normal Respiratory Effort Cardiovascular: Reports: Regular Rate, Regular Rhythm GI/Abdominal Exam: Normal Bowel Sounds, Soft, Non-Tender, No Organomegaly, No Distention, No Abnormal Bruit, No Mass, Pelvis Stable (Female) Exam: Normal External Exam, Normal Speculum Exam, Normal Bimanual Exam Rectal (Female) Exam: Normal Exam, Normal Rectal Tone Back Exam: Reports: Normal Inspection, Full Range of Motion Extremities: Normal Inspection, Normal Range of Motion, Non-Tender, No Pedal Edema, Normal Capillary Refill Skin: Reports: Warm, Dry, Intact Wound/Incisions: Reports: Healing Well Neurological: Reports: No New Focal Deficit Psy/Mental Status: Reports: Alert, Normal Affect, Normal Mood
== END 2018-06-04 11:00 | disposition home or self-care (01) | DRG 766 ==
LOC: MW.OBCHECK 03:19 → MW.OB 03:24 → MW.OBCHECK 04:31 → MW.OB 04:32 → OBSVTOIN 06:14 → MW.OB 09:58
PROVIDERS: ADMIT Obstetrics & Gynecology; ATTEND Obstetrics & Gynecology
PROC: 10D00Z1 Extraction of Products of Conception, Low, Open Approach (ICD-10-PCS; principal; 2018-06-02)
DX: O34.211 Maternal care for low transverse scar from previous cesarean delivery (principal); O99.214 Obesity complicating childbirth; N85.8 Other specified noninflammatory disorders of uterus; E66.9 Obesity, unspecified; Z90.49 Acquired absence of other specified parts of digestive tract; Z3A.39 39 weeks gestation of pregnancy
CPT/HCPCS: 01961; 36415; 59025; 84112; 85014; 85018; 85027; 86850; 86900; 86901; A9270-GY; J0690; J1885; J2274; J2300; J2405; J2590; J7120

== ENCOUNTER 2019-06-29 08:27 | Emergency (ER) | payer MEDICAID ==
[2019-06-29] MEDS ORDERED: Ondansetron 4 MG/2 ML SDV IVPUSH ONE (08:37)
[2019-06-29] MEDS ORDERED: Sodium Chloride 0.9% 1,000 ML IV ONE (08:37)
--- NOTE | 2019-06-29 08:45 | EDM.PDOC ---
ED HPI GENERAL MEDICAL PROBLEM - General Chief Complaint: Abdominal Pain Stated Complaint: NAUSEA,ABD PAIN Time Seen by Provider: 06/29/19 08:30 Source of Information: Reports: Patient History Limitations: Reports: No Limitations - History of Present Illness INITIAL COMMENTS - FREE TEXT/NARRATIVE: HISTORY AND PHYSICAL: History of present illness: Patient is a 23-year-old female who presents to the emergency room with complaints of upper abdominal pain, nausea and vomiting. She states approximately 2 weeks ago she had a similar episode but had resolved within 24 hours. This morning she woke up with the same pain associated with nausea and vomiting. Nothing makes the symptoms better/worse. States her last menstrual period was approximately 3 weeks ago although is irregular as she is currently breast-feeding/1 year . She has had a cholecystectomy. Patient denies any fever, chills, headache, change in vision, syncope or near syncope. Denies any chest pain, back pain, shortness of breath or cough. Denies any diarrhea, constipation or dysuria. Has not noted any blood in urine or stool. Patient had been eating and drinking appropriately. Review of systems: As per history of present illness and below otherwise all systems reviewed and negative. Past medical history: As per history of present illness and as reviewed below otherwise noncontributory. Surgical history: As per history of present illness and as reviewed below otherwise noncontributory. Social history: See social history for further information Family history: As per history of present illness and as reviewed below otherwise noncontributory. Physical exam: General: Well-developed and well-nourished 23-year-old female. Alert and oriented. Nontoxic appearing and in no acute distress. HEENT: Atraumatic, normocephalic, pupils equal and reactive bilaterally, negative for conjunctival pallor or scleral icterus, mucous membranes moist, TMs normal bilaterally, throat clear, neck supple, nontender, trachea midline. No drooling or trismus noted. No meningeal signs. No hot potato voice noted. Lungs: Clear to auscultation, breath sounds equal bilaterally, chest nontender. Heart: S1S2, regular rate and rhythm without overt murmur Abdomen: Soft, nondistended, diffuse upper abdominal pain/epigastric pain Negative for masses or hepatosplenomegaly. Negative for costovertebral tenderness. Pelvis: Stable nontender. Skin: Intact, warm, dry. No lesions or rashes noted. Extremities: Atraumatic, moves all extremities per self without difficulty or deficits, negative for cords or calf pain. Neurovascular unremarkable. Neuro: Awake, alert, oriented. Cranial nerves II through XII unremarkable. Cerebellum unremarkable. Motor and sensory unremarkable throughout. Exam nonfocal. Notes: Patient does have a slightly elevated leukocytosis. Remaining lab work is unremarkable. Patient declines wanting IV contrast so she states she is breast feeding and does not want this risk associated with IV contrast. CT of the abdomen and pelvis shows no acute findings. Patient's symptoms have improved. We discussed the need for follow-up with primary care provider. Supportive care measures were reviewed and discussed. Voices understanding and is agreeable to plan of care. Denies any further questions or concerns at this time. Diagnostics: CBC, CMP, UA, HCGU, Lipase Therapeutics: IV fluids, Zofran Prescription: None Impression: Abdominal Pain, upper abdominal Plan: 1. Please use Tylenol and/or Ibuprofen as needed for pain and fever management. 2. Get plenty of Rest. Encourage fluids to prevent dehydration. 3. Please follow up with your primary care provider. Return to the ED as needed as discussed. Definitive disposition and diagnosis as appropriate pending reevaluation and review of above. Abdomen Pain Score (Numeric/FACES): 10 - Related Data Allergies Allergy/AdvReac Type Severity Reaction Status Date / Time No Known Allergies Allergy Verified 06/29/19 08:32 Home Meds: Home Meds . [No Known Home Meds] 06/29/19 [History] Past Medical History - Past Health History Medical/Surgical History: Denies Medical/Surgical History HEENT History: Reports: None Cardiovascular History: Reports: None Respiratory History: Reports: None Gastrointestinal History: Reports: None Genitourinary History: Reports: None CONTENT PRODUCER History: Reports: Other CONTENT PRODUCER History: 3 times Musculoskeletal History: Reports: None Neurological History: Reports: None Psychiatric History: Reports: None Endocrine/Metabolic History: Reports: Obesity/BMI 30+ Hematologic History: Reports: None Immunologic History: Reports: None Oncologic (Cancer) History: Reports: None Dermatologic History: Reports: None - Past Surgical History Head Surgeries/Procedures: Reports: None HEENT Surgical History: Reports: None Cardiovascular Surgical History: Reports: None Respiratory Surgical History: Reports: None GI Surgical History: Reports: Cholecystectomy Female Surgical History: Reports: Section, Other (See Below) Other Female Surgeries/Procedures: excision of axillary cyst at 7 y/o Endocrine Surgical History: Reports: None Neurological Surgical History: Reports: None Musculoskeletal Surgical History: Reports: None Oncologic Surgical History: Reports: None Dermatological Surgical History: Reports: None Social & Family History - Family History Family Medical History: Noncontributory - Tobacco Use Smoking Status *Q: Never Smoker Second Hand Smoke Exposure: No - Caffeine Use Caffeine Use: Reports: Soda - Recreational Drug Use Recreational Drug Use: No ED ROS GENERAL - Review of Systems Review Of Systems: ROS reveals no pertinent complaints other than HPI. ED EXAM, GI/ABD - Physical Exam Exam: See Below (See dictation) Course - Vital Signs Last Recorded V/S: Last Vital Signs Temp 95.6 F 06/29/19 08:32 Pulse 99 06/29/19 08:32 Resp 16 06/29/19 08:32 BP 126/79 06/29/19 08:32 Pulse Ox 97 06/29/19 08:32 - Orders/Labs/Meds Orders: Active Orders 24 hr Category Date Time Status UA RFX PAUL AND CULT IF INDIC [URIN] Stat Lab 06/29/19 08:37 Ordered Labs: Laboratory Tests 06/29/19 06/29/19 06/29/19 Range/Units 08:36 09:04 09:04 WBC 13.82 H (4.0-11.0) K/uL RBC 4.99 (4.30-5.90) M/uL Hgb 14.9 (12.0-16.0) g/dL Hct 44.5 (36.0-46.0) % MCV 89.2 (80.0-98.0) fL MCH 29.9 (27.0-32.0) pg MCHC 33.5 (31.0-37.0) g/dL RDW Std Deviation 41.4 (28.0-62.0) fl RDW Coeff of Zuri 13 (11.0-15.0) % Plt Count 285 (150-400) K/uL MPV 10.60 (7.40-12.00) fL Neut % (Auto) 75.8 (48.0-80.0) % Lymph % (Auto) 14.8 L (16.0-40.0) % [place] % (Auto) 7.5 (0.0-15.0) % Eos % (Auto) 1.8 (0.0-7.0) % Baso % (Auto) 0.1 (0.0-1.5) % Neut # (Auto) 10.5 H (1.4-5.7) K/uL Lymph # (Auto) 2.1 (0.6-2.4) K/uL [place] # (Auto) 1.0 H (0.0-0.8) K/uL Eos # (Auto) 0.3 (0.0-0.7) K/uL Baso # (Auto) 0.0 (0.0-0.1) K/uL Nucleated RBC % 0.0 /100WBC Nucleated RBCs # 0 K/uL Sodium 137 (136-145) mmol/L Potassium 4.3 (3.5-5.1) mmol/L Chloride 103 (98-107) mmol/L Carbon Dioxide 22.5 (21.0-32.0) mmol/L BUN 16 (7.0-18.0) mg/dL Creatinine 0.8 (0.6-1.0) mg/dL Est Cr Clr Drug Dosing 97.57 mL/min Estimated GFR (MDRD) > 60.0 ml/min Glucose 95 (74-106) mg/dL Calcium 8.9 (8.5-10.1) mg/dL Total Bilirubin 0.3 (0.2-1.0) mg/dL AST 28 (15-37) IU/L ALT 16 (14-63) IU/L Alkaline Phosphatase 77 (46-116) U/L Total Protein 8.9 H (6.4-8.2) g/dL Albumin 3.6 (3.4-5.0) g/dL Globulin 5.3 H (2.6-4.0) g/dL Albumin/Globulin Ratio 0.7 L (0.9-1.6) Lipase 85 (73-393) U/L Urine HCG, Qual NEGATIVE (NEGATIVE) Meds: Medications Discontinued Medications Generic Name Dose Route Start Last Admin Trade Name Freq PRN Reason Stop Dose Admin Sodium Chloride 1,000 mls @ 999 mls/hr 06/29/19 08:37 06/29/19 09:05 Normal Saline IV 06/29/19 09:37 999 mls/hr STAT ONE Administration Ketorolac Tromethamine 30 mg 06/29/19 08:50 06/29/19 09:09 Toradol IVPUSH 06/29/19 08:51 30 mg ONETIME ONE Administration Ondansetron HCl 4 mg 06/29/19 08:37 06/29/19 09:05 Zofran IVPUSH 06/29/19 08:38 4 mg ONETIME ONE Administration Departure - Departure Time of Disposition: 10:47 Disposition: Home, Self-Care 01 Clinical Impression: Abdominal pain Qualifiers: Abdominal location: upper abdomen, unspecified Qualified Code(s): R10.10 - Upper abdominal pain, unspecified - Discharge Information Instructions: Abdominal Pain, Adult, [id number] Referrals: Alyssa Spencer NP [Primary Care Provider] - Forms: ED Department Discharge Additional Instructions: The following information is given to patients seen in the emergency department who are being discharged to home. This information is to outline your options for follow-up care. We provide all patients seen in our emergency department with a follow-up referral. The need for follow-up, as well as the timing and circumstances, are variable depending upon the specifics of your emergency department visit. If you don't have a primary care physician on staff, we will provide you with a referral. We always advise you to contact your personal physician following an emergency department visit to inform them of the circumstance of the visit and for follow-up with them and/or the need for any referrals to a consulting specialist. The emergency department will also refer you to a specialist when appropriate. This referral assures that you have the opportunity for follow-up care with a specialist. All of these measure are taken in an effort to provide you with optimal care, which includes your follow-up. Under all circumstances we always encourage you to contact your private physician who remains a resource for coordinating your care. When calling for follow-up care, please make the office aware that this follow-up is from your recent emergency room visit. If for any reason you are refused follow-up, please contact the [facility] Emergency Department at and asked to speak to the emergency department charge nurse. [facility] [address] [place], [place] [id number] [facility] [address] [place] [address] 1. Please use Tylenol and/or Ibuprofen as needed for pain and fever management. 2. Get plenty of Rest. Encourage fluids to prevent dehydration. 3. Please follow up with your primary care provider. Return to the ED as needed as discussed. - My Orders Last 24 Hours: My Active Orders 06/29/19 08:37 UA RFX PAUL AND CULT IF INDIC [URIN] Stat - Assessment/Plan Last 24 Hours: My Active Orders 06/29/19 08:37 UA RFX PAUL AND CULT IF INDIC [URIN] Stat
[2019-06-29] MEDS ORDERED: Ketorolac 30 MG/ML SDV IVPUSH ONE (08:50)
[2019-06-29 09:45] LABS: BLOOD UREA NITROGEN,BUN 16 mg/dL (7.0-18.0); CARBON DIOXIDE,CO2 22.5 mmol/L (21.0-32.0); CHLORIDE,CL 103 mmol/L (98-107); GLUCOSE RANDOM 95 mg/dL (74-106); LIPASE 85 U/L (73-393); POTASSIUM,K 4.3 mmol/L (3.5-5.1); SODIUM,NA 137 mmol/L (136-145)
--- NOTE | 2019-06-29 10:40 | CT ---
INDICATION: Mid abdominal pain with vomiting. TECHNIQUE: CT of the abdomen and pelvis without intravenous contrast. Coronal and sagittal reconstructions. COMPARISON: None. FINDINGS: Cholecystectomy. The unenhanced liver, spleen, pancreas, kidneys, and adrenal glands are normal in appearance. Tiny splenule. No hydronephrosis. No urinary calculi. The bladder, uterus, and adnexa are unremarkable. No bowel dilation. Negative appendix. No intraperitoneal free air or fluid. No lymphadenopathy. The lung bases are clear. IMPRESSION: No acute findings in the abdomen or pelvis on this noncontrast exam. Please note that all CT scans at this facility use dose modulation, iterative reconstruction, and/or weight-based dosing when appropriate to reduce radiation dose to as low as reasonably achievable. Dictated by Kelli George MD @ Jun 29 2019 10:30AM Signed by Dr. Kelli George @ Jun 29 2019 10:38AM
== END 2019-06-29 11:10 | disposition home or self-care (01) ==
LOC: MW.ED 08:27
DX: R10.10 Upper abdominal pain, unspecified (principal); R10.13 Epigastric pain; E66.9 Obesity, unspecified; Z68.38 Body mass index [BMI] 38.0-38.9, adult; Z90.49 Acquired absence of other specified parts of digestive tract
CPT/HCPCS: 36415; 74176; 80053; 81001; 81025; 83690; 85025; 96361; 96374; 96375; 99284; J1885; J2405; J7040

== ENCOUNTER 2019-07-13 02:42 | Emergency (ER) | payer MEDICAID ==
--- NOTE | 2019-07-13 02:51 | EDM.PDOC ---
ED HPI GENERAL MEDICAL PROBLEM - General Chief Complaint: Abdominal Pain Stated Complaint: ABDOMINAL PAIN, VOMITING, DIARRHEA, FEVER Time Seen by Provider: 07/13/19 02:47 - History of Present Illness INITIAL COMMENTS - FREE TEXT/NARRATIVE: HISTORY AND PHYSICAL: History of present illness: The patient is a 23-year-old female who presents with complaints of mid abdominal pain that radiates all over and is in general very generalized associated with nausea and vomiting and diarrhea. The patient says that she had a normal day yesterday without any systemic complaints and last evening around 9 PM she had some start of abdominal pain which then progressed to 2 loose bowel movements/diarrhea and 2 episodes of vomiting. None of this was black or bloody and she was able to take sips afterwards through the evening and then just prior to coming here this morning she had an episode of diarrhea and vomiting so she thought she should be seen. The patient did not try any medications [id number] and does not have a history of food intolerance. She had a cholecystectomy in the past. She's had no fevers documented but she has felt feverish and chilly and has no upper respiratory symptoms no flank pain and no urinary complaints. The patient says she has regular periods and denies and she is currently breast-feeding her 1-year-old. The patient has no GI history.The patient does have a history of a cholecystectomy The patient was seen here in our emergency department on June 29 for upper abdominal pain associated with nausea and vomiting. She had a complete lab workup including a CAT scan of the abdomen and pelvis which revealed no etiology of her pain and she was given symptomatic management both in the department and for home including Zofran. Review of systems: As per history of present illness and below otherwise all systems reviewed and negative. Past medical history: As per history of present illness and as reviewed below otherwise noncontributory. Surgical history: As per history of present illness and as reviewed below otherwise noncontributory. Social history: No reported history of drug or alcohol abuse. Family history: As per history of present illness and as reviewed below otherwise noncontributory. Physical exam: General: Well-developed well-nourished overweight female who is nontoxic and vital signs are noted by me HEENT: Atraumatic, normocephalic, pupils reactive, negative for conjunctival pallor or scleral icterus, mucous membranes moist, throat clear, neck supple, nontender, trachea midline. Lungs: Clear to auscultation, breath sounds equal bilaterally, chest nontender. Heart: S1S2, regular rate and rhythm no overt murmurs Abdomen: Soft, nondistended, minimally tender in the mid abdomen easily without any localization no rebound or guarding. Bowel sounds are normoactive. Negative for masses or hepatosplenomegaly. Negative for costovertebral tenderness. Pelvis: Stable nontender. Genitourinary: Deferred. Rectal: Deferred. Extremities: Atraumatic, full range of motion no edema. Neurovascular unremarkable. Neuro: Awake, alert, oriented. Cranial nerves II through XII unremarkable. Cerebellum unremarkable. Motor and sensory unremarkable throughout. Exam nonfocal. Diagnostics: CBC CMP amylase lipase UA UCG Therapeutics: IV fluids Zofran toradol Protonix Patient has not had any vomiting while in the ED and is feeling better. She is aware that her lab tests are normal and she is finishing her liter of fluids. She would like to try some ice chips. We'll plan on discharge home with Zofran for the nausea and vomiting. Patient is still breast-feeding her 1-year-old is very particular about medication choices. The patient also had a very small diarrhea stool here in the ED Impression: Vomiting diarrhea and abdominal pain improving Definitive disposition and diagnosis as appropriate pending reevaluation and review of above. abdomen Pain Score (Numeric/FACES): 7 - Related Data Allergies Allergy/AdvReac Type Severity Reaction Status Date / Time No Known Allergies Allergy Verified 07/13/19 02:46 Home Meds: Home Meds . [No Known Home Meds] 06/29/19 [History] Past Medical History - Past Health History Medical/Surgical History: Denies Medical/Surgical History HEENT History: Reports: None Cardiovascular History: Reports: None Respiratory History: Reports: None Gastrointestinal History: Reports: None Genitourinary History: Reports: None COOKER SULFITE History: Reports: Other COOKER SULFITE History: 3 times Musculoskeletal History: Reports: None Neurological History: Reports: None Psychiatric History: Reports: None Endocrine/Metabolic History: Reports: Obesity/BMI 30+ Hematologic History: Reports: None Immunologic History: Reports: None Oncologic (Cancer) History: Reports: None Dermatologic History: Reports: None - Past Surgical History Head Surgeries/Procedures: Reports: None HEENT Surgical History: Reports: None Cardiovascular Surgical History: Reports: None Respiratory Surgical History: Reports: None GI Surgical History: Reports: Cholecystectomy Female Surgical History: Reports: Section, Other (See Below) Other Female Surgeries/Procedures: excision of axillary cyst at 7 y/o Endocrine Surgical History: Reports: None Neurological Surgical History: Reports: None Musculoskeletal Surgical History: Reports: None Oncologic Surgical History: Reports: None Dermatological Surgical History: Reports: None Social & Family History - Family History Family Medical History: Noncontributory - Caffeine Use Caffeine Use: Reports: Soda ED ROS GENERAL - Review of Systems Review Of Systems: ROS reveals no pertinent complaints other than HPI. ED EXAM, GENERAL - Physical Exam Exam: See Below (See dictation) Course - Vital Signs Last Recorded V/S: Last Vital Signs Temp 35.9 C 07/13/19 02:45 Pulse 101 H 07/13/19 02:45 Resp 18 07/13/19 02:45 BP 122/72 07/13/19 02:45 Pulse Ox 97 07/13/19 02:45 - Orders/Labs/Meds Orders: Active Orders 24 hr Category Date Time Status Sodium Chloride 0.9% [Saline Flush] Med 07/13/19 02:58 Active 10 ml FLUSH ASDIRECTED PRN Sodium Chloride 0.9% [Saline Flush] Med 07/13/19 02:58 Active 2.5 ml FLUSH ASDIRECTED PRN Saline Lock Insert [OM.PC] Stat Oth 07/13/19 02:58 Ordered Medication Orders Sodium Chloride (Saline Flush) 10 ml FLUSH ASDIRECTED PRN PRN Reason: Keep Vein Open Sodium Chloride (Saline Flush) 2.5 ml FLUSH ASDIRECTED PRN PRN Reason: Keep Vein Open Labs: Laboratory Tests 07/13/19 07/13/19 07/13/19 Range/Units 03:10 03:10 03:50 WBC 12.16 H (4.0-11.0) K/uL RBC 4.86 (4.30-5.90) M/uL Hgb 14.5 (12.0-16.0) g/dL Hct 43.1 (36.0-46.0) % MCV 88.7 (80.0-98.0) fL MCH 29.8 (27.0-32.0) pg MCHC 33.6 (31.0-37.0) g/dL RDW Std Deviation 41.6 (28.0-62.0) fl RDW Coeff of Zuri 13 (11.0-15.0) % Plt Count 226 (150-400) K/uL MPV 10.20 (7.40-12.00) fL Neut % (Auto) 89.1 H (48.0-80.0) % Lymph % (Auto) 4.5 L (16.0-40.0) % [place] % (Auto) 4.6 (0.0-15.0) % Eos % (Auto) 1.7 (0.0-7.0) % Baso % (Auto) 0.1 (0.0-1.5) % Neut # (Auto) 10.8 H (1.4-5.7) K/uL Lymph # (Auto) 0.6 (0.6-2.4) K/uL [place] # (Auto) 0.6 (0.0-0.8) K/uL Eos # (Auto) 0.2 (0.0-0.7) K/uL Baso # (Auto) 0.0 (0.0-0.1) K/uL Nucleated RBC % 0.0 /100WBC Nucleated RBCs # 0 K/uL Sodium 141 (136-145) mmol/L Potassium 3.8 (3.5-5.1) mmol/L Chloride 105 (98-107) mmol/L Carbon Dioxide 24.5 (21.0-32.0) mmol/L BUN 13 (7.0-18.0) mg/dL Creatinine 0.9 (0.6-1.0) mg/dL Est Cr Clr Drug Dosing 86.73 mL/min Estimated GFR (MDRD) > 60.0 ml/min Glucose 114 H (74-106) mg/dL Calcium 8.8 (8.5-10.1) mg/dL Total Bilirubin 0.5 (0.2-1.0) mg/dL AST 11 L (15-37) IU/L ALT 16 (14-63) IU/L Alkaline Phosphatase 75 (46-116) U/L Total Protein 8.4 H (6.4-8.2) g/dL Albumin 3.6 (3.4-5.0) g/dL Globulin 4.8 H (2.6-4.0) g/dL Albumin/Globulin Ratio 0.8 L (0.9-1.6) Amylase 64 (25-115) U/L Lipase 79 (73-393) U/L Urine Color YELLOW Urine Appearance CLEAR Urine pH 6.5 (5.0-8.0) Ur Specific [place] 1.020 (1.001-1.035) Urine Protein NEGATIVE (NEGATIVE) mg/dL Urine Glucose (UA) NEGATIVE (NEGATIVE) mg/dL Urine Ketones NEGATIVE (NEGATIVE) mg/dL Urine Occult Blood TRACE-INTACT H (NEGATIVE) Urine Nitrite NEGATIVE (NEGATIVE) Urine Bilirubin NEGATIVE (NEGATIVE) Urine Urobilinogen 0.2 (<2.0) EU/dL Ur Leukocyte Esterase NEGATIVE (NEGATIVE) Urine RBC 0-2 (0-2/HPF) Urine WBC 0-1 (0-5/HPF) Ur Epithelial Cells MODERATE (NONE-FEW) Urine Bacteria FEW (NEGATIVE) Urine Mucus LIGHT (NONE-MOD) Urine HCG, Qual (NEGATIVE) 07/13/19 Range/Units 03:50 WBC (4.0-11.0) K/uL RBC (4.30-5.90) M/uL Hgb (12.0-16.0) g/dL Hct (36.0-46.0) % MCV (80.0-98.0) fL MCH (27.0-32.0) pg MCHC (31.0-37.0) g/dL RDW Std Deviation (28.0-62.0) fl RDW Coeff of Zuri (11.0-15.0) % Plt Count (150-400) K/uL MPV (7.40-12.00) fL Neut % (Auto) (48.0-80.0) % Lymph % (Auto) (16.0-40.0) % [place] % (Auto) (0.0-15.0) % Eos % (Auto) (0.0-7.0) % Baso % (Auto) (0.0-1.5) % Neut # (Auto) (1.4-5.7) K/uL Lymph # (Auto) (0.6-2.4) K/uL [place] # (Auto) (0.0-0.8) K/uL Eos # (Auto) (0.0-0.7) K/uL Baso # (Auto) (0.0-0.1) K/uL Nucleated RBC % /100WBC Nucleated RBCs # K/uL Sodium (136-145) mmol/L Potassium (3.5-5.1) mmol/L Chloride (98-107) mmol/L Carbon Dioxide (21.0-32.0) mmol/L BUN (7.0-18.0) mg/dL Creatinine (0.6-1.0) mg/dL Est Cr Clr Drug Dosing mL/min Estimated GFR (MDRD) ml/min Glucose (74-106) mg/dL Calcium (8.5-10.1) mg/dL Total Bilirubin (0.2-1.0) mg/dL AST (15-37) IU/L ALT (14-63) IU/L Alkaline Phosphatase (46-116) U/L Total Protein (6.4-8.2) g/dL Albumin (3.4-5.0) g/dL Globulin (2.6-4.0) g/dL Albumin/Globulin Ratio (0.9-1.6) Amylase (25-115) U/L Lipase (73-393) U/L Urine Color Urine Appearance Urine pH (5.0-8.0) Ur Specific [place] (1.001-1.035) Urine Protein (NEGATIVE) mg/dL Urine Glucose (UA) (NEGATIVE) mg/dL Urine Ketones (NEGATIVE) mg/dL Urine Occult Blood (NEGATIVE) Urine Nitrite (NEGATIVE) Urine Bilirubin (NEGATIVE) Urine Urobilinogen (<2.0) EU/dL Ur Leukocyte Esterase (NEGATIVE) Urine RBC (0-2/HPF) Urine WBC (0-5/HPF) Ur Epithelial Cells (NONE-FEW) Urine Bacteria (NEGATIVE) Urine Mucus (NONE-MOD) Urine HCG, Qual NEGATIVE (NEGATIVE) Meds: Medications Generic Name Dose Route Start Last Admin Trade Name Freq PRN Reason Stop Dose Admin Sodium Chloride 10 ml 07/13/19 02:58 Saline Flush FLUSH ASDIRECTED PRN Keep Vein Open Sodium Chloride 2.5 ml 07/13/19 02:58 Saline Flush FLUSH ASDIRECTED PRN Keep Vein Open Discontinued Medications Generic Name Dose Route Start Last Admin Trade Name Freq PRN Reason Stop Dose Admin Sodium Chloride 1,000 mls @ 999 mls/hr 07/13/19 02:58 07/13/19 03:14 Normal Saline IV 07/13/19 03:58 999 mls/hr STAT ONE Administration Sodium Chloride Confirm 07/13/19 03:13 07/13/19 03:15 Normal Saline Administered 07/13/19 03:14 20 mls/hr Dose Administration 20 mls @ as directed .ROUTE .STK-MED ONE Ketorolac Tromethamine 30 mg 07/13/19 03:04 07/13/19 03:15 Toradol IVPUSH 07/13/19 03:05 30 mg ONETIME ONE Administration Ondansetron HCl 4 mg 07/13/19 02:58 07/13/19 03:15 Zofran IVPUSH 07/13/19 02:59 4 mg ONETIME ONE Administration Pantoprazole Sodium 80 mg 07/13/19 02:58 07/13/19 03:15 Protonix Iv IVPUSH 07/13/19 02:59 80 mg .BOLUS ONE Administration Departure - Departure Time of Disposition: 04:04 Disposition: Home, Self-Care 01 Condition: Good Clinical Impression: Abdominal pain, vomiting, and diarrhea - Discharge Information Referrals: Alyssa Spencer [employer] [Primary Care Provider] - Forms: ED Department Discharge Additional Instructions: The following information is given to patients seen in the emergency department who are being discharged to home. This information is to outline your options for follow-up care. We provide all patients seen in our emergency department with a follow-up referral. The need for follow-up, as well as the timing and circumstances, are variable depending upon the specifics of your emergency department visit. If you don't have a primary care physician on staff, we will provide you with a referral. We always advise you to contact your personal physician following an emergency department visit to inform them of the circumstance of the visit and for follow-up with them and/or the need for any referrals to a consulting specialist. The emergency department will also refer you to a specialist when appropriate. This referral assures that you have the opportunity for followup care with a specialist. All of these measure are taken in an effort to provide you with optimal care, which includes your followup. Under all circumstances we always encourage you to contact your private physician who remains a resource for coordinating your care. When calling for followup care, please make the office aware that this follow-up is from your recent emergency room visit. If for any reason you are refused follow-up, please contact the [facility] emergency department at and ask to speak to the emergency department charge nurse. [facility] Primary care- Internal Medicine and Family [address] [address] Push clear liquids and bites of bland food. Use medication as prescribed to you from [facility], Zoan for nausea and vomiting . You may use any over-the- counter antidiarrheal medication as you choose. Please call and schedule a follow-up appointment in the clinic with one of our providers as you choose. Return to ER as needed and as discussed - My Orders Last 24 Hours: My Active Orders 07/13/19 02:58 Sodium Chloride 0.9% [Saline Flush] 10 ml FLUSH ASDIRECTED PRN Sodium Chloride 0.9% [Saline Flush] 2.5 ml FLUSH ASDIRECTED PRN Saline Lock Insert [OM.PC] Stat - Assessment/Plan Last 24 Hours: My Active Orders 07/13/19 02:58 Sodium Chloride 0.9% [Saline Flush] 10 ml FLUSH ASDIRECTED PRN Sodium Chloride 0.9% [Saline Flush] 2.5 ml FLUSH ASDIRECTED PRN Saline Lock Insert [OM.PC] Stat
[2019-07-13] MEDS ORDERED: Ondansetron 4 MG/2 ML SDV IVPUSH ONE (02:58)
[2019-07-13] MEDS ORDERED: Sodium Chloride 0.9% 1,000 ML IV ONE (02:58)
[2019-07-13] MEDS ORDERED: Sodium Chloride 0.9% 2.5 ML Syringe FLUSH PRN (02:58)
[2019-07-13] MEDS ORDERED: Pantoprazole 40 MG Vial IVPUSH ONE (02:58)
[2019-07-13] MEDS ORDERED: Sodium Chloride 0.9% 10 ML Syringe FLUSH PRN (02:58)
[2019-07-13] MEDS ORDERED: Ketorolac 30 MG/ML SDV IVPUSH ONE (03:04)
[2019-07-13] MEDS ORDERED: Sodium Chloride 0.9% 20 ML ONE (03:13)
[2019-07-13 03:38] LABS: BLOOD UREA NITROGEN,BUN 13 mg/dL (7.0-18.0); CARBON DIOXIDE,CO2 24.5 mmol/L (21.0-32.0); CHLORIDE,CL 105 mmol/L (98-107); GLUCOSE RANDOM 114 mg/dL (74-106); LIPASE 79 U/L (73-393); POTASSIUM,K 3.8 mmol/L (3.5-5.1); SODIUM,NA 141 mmol/L (136-145)
== END 2019-07-13 04:26 | disposition home or self-care (01) ==
LOC: MW.ED 02:42
DX: R10.84 Generalized abdominal pain (principal); R19.7 Diarrhea, unspecified; R11.2 Nausea with vomiting, unspecified; E66.9 Obesity, unspecified; Z68.37 Body mass index [BMI] 37.0-37.9, adult
CPT/HCPCS: 36415; 80053; 81001; 81025; 82150; 83690; 85025; 96361; 96374; 96375; 99284; C9113; J1885; J2405; J7040; 99283

== ENCOUNTER 2020-12-05 20:53 | Emergency (ER) | payer MEDICAID ==
--- NOTE | 2020-12-05 21:40 | EDM.PDOC ---
ED HPI GENERAL MEDICAL PROBLEM - General Chief Complaint: Upper Extremity Injury/Pain Stated Complaint: LT WRIST PAIN Time Seen by Provider: 12/05/20 21:05 Source of Information: Reports: Patient History Limitations: Reports: No Limitations - History of Present Illness INITIAL COMMENTS - FREE TEXT/NARRATIVE: HISTORY AND PHYSICAL: History of present illness: Patient is a 25-year-old female who presents to the ED today with concern of left wrist pain that has been ongoing over the past 2 weeks. 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 Patient states that over the course of the past 2 weeks, she notices the more that she use her wrist, the more pain she is having. Patient denies any direct trauma or injury to her wrist. Patient states that she is fully able to move the wrist just has pain worse with flexion. Patient states the pain is mostly in the base of the thumb. Patient denies any redness or swelling. Patient denies any health history. Patient denies fever, chills, chest pain, shortness of breath, or cough. Denies headache, neck stiff ness, change in vision, syncope, or near syncope. Denies nausea, vomiting, abdominal pain, diarrhea, constipation, or dysuria. Has not noted any blood in urine or stool. Patient has been eating and drinking appropriately. Review of systems: As per history of present illness and below otherwise all systems reviewed and negative. Past medical history: As per history of present illness and as reviewed below otherwise noncontributory. Surgical history: As per history of present illness and as reviewed below otherwise noncontributory. Social history: See social history for further information Family history: As per history of present illness and as reviewed below otherwise noncontributory. Physical exam: General: Patient is alert, oriented, and in no acute distress. Patient sitting comfortably on exam table. Vitals stable and reviewed by me. HEENT: Atraumatic, normocephalic, pupils equal and reactive bilaterally, negative for conjunctival pallor or scleral icterus, mucous membranes moist, TMs normal bilaterally, throat clear, neck supple, nontender, trachea midline. No drooling or trismus noted. No meningeal signs. No hot potato voice noted. Lungs: Clear to auscultation, breath sounds equal bilaterally, chest nontender. Heart: S1S2, regular rate and rhythm without overt murmur Abdomen: Soft, nondistended, nontender. Negative for masses or hepatosplenomegaly. Negative for costovertebral tenderness. Pelvis: Stable nontender. Genitourinary: Deferred. Rectal: Deferred. Skin: Intact, warm, dry. No lesions or rashes noted. Extremities: No obvious deformity of the complete left upper extremity. No erythema, edema, or ecchymosis noted to the left wrist. Radial and ulnar pulses are intact via Doppler. Patient has intact set sensation of the complete left upper extremity. Full range of motion of the complete left upper extremity patient does have pain with flexion of the left wrist. Negative Phalen and Tinel's sign. Negative Finklesteins test. Otherwise, atraumatic, negative for cords or calf pain. Neurovascular unremarkable. Neuro: Awake, alert, oriented. Cranial nerves II through XII unremarkable. Cerebellum unremarkable. Motor and sensory unremarkable throughout. Exam nonfocal. Notes: X-ray of patient's left wrist was offered to patient but she declines at this time. All risks versus benefits discussed with patient and expresses understanding. Patient currently has a wrist splint available to her at home. Discussed importance for follow-up with a primary care provider and orthopedic provider. Voices understanding and is agreeable to plan of care. Denies any further questions or concerns at this time. Diagnostics: Wrist x-ray was offered but patient declines Therapeutics: None Prescription: None Impression: Left wrist pain Plan: 1. Rest, ice, elevate the affected extremity. You can apply ice 15 minutes on, 15 minutes off. Use the splint you have until orthopedic evaluation. 2. Tylenol and/or Ibuprofen as directed for pain management or discomfort. 3. Follow up with the Orthopedic provider as discussed. Return to the ED as needed and as discussed. Definitive disposition and diagnosis as appropriate pending reevaluation and review of above. left wrist Pain Score (Numeric/FACES): 7 - Related Data Allergies Allergy/AdvReac Type Severity Reaction Status Date / Time No Known Allergies Allergy Verified 12/05/20 21:04 Home Meds: Home Meds . [No Known Home Meds] 06/29/19 [History] Past Medical History - Past Health History Medical/Surgical History: Denies Medical/Surgical History HEENT History: Reports: None Cardiovascular History: Reports: None Respiratory History: Reports: None Gastrointestinal History: Reports: None Genitourinary History: Reports: None ADMINISTRATIVE DIETITIAN History: Reports: Other ADMINISTRATIVE DIETITIAN History: 3 times Musculoskeletal History: Reports: None Neurological History: Reports: None Psychiatric History: Reports: None Endocrine/Metabolic History: Reports: Obesity/BMI 30+ Hematologic History: Reports: None Immunologic History: Reports: None Oncologic (Cancer) History: Reports: None Dermatologic History: Reports: None - Past Surgical History Head Surgeries/Procedures: Reports: None HEENT Surgical History: Reports: None Cardiovascular Surgical History: Reports: None Respiratory Surgical History: Reports: None GI Surgical History: Reports: Cholecystectomy Female Surgical History: Reports: Section, Other (See Below) Other Female Surgeries/Procedures: excision of axillary cyst at 7 y/o Endocrine Surgical History: Reports: None Neurological Surgical History: Reports: None Musculoskeletal Surgical History: Reports: None Oncologic Surgical History: Reports: None Dermatological Surgical History: Reports: None Social & Family History - Family History Family Medical History: No Pertinent Family History - Caffeine Use Caffeine Use: Reports: Soda Review of Systems - Review of Systems Review Of Systems: Comprehensive ROS is negative, except as noted in HPI. ED EXAM, GENERAL - Physical Exam Exam: See Below (see dictation) Course - Vital Signs Last Recorded V/S: Last Vital Signs Temp 98.0 F 12/05/20 21:05 Pulse 80 12/05/20 21:05 Resp 18 12/05/20 21:05 BP 121/74 12/05/20 21:05 Pulse Ox 98 12/05/20 21:05 Departure - Departure Time of Disposition: 21:39 Disposition: Home, Self-Care 01 Clinical Impression: Left wrist pain - Discharge Information Referrals: Alyssa Spencer NP [Primary Care Provider] - Forms: ED Department Discharge Additional Instructions: The following information is given to patients seen in the emergency department who are being discharged to home. This information is to outline your options f or follow-up care. We provide all patients seen in our emergency department with a follow-up referral. The need for follow-up, as well as the timing and circumstances, are variable depending upon the specifics of your emergency department visit. If you don't have a primary care physician on staff, we will provide you with a referral. We always advise you to contact your personal physician following an emergency department visit to inform them of the circumstance of the visit and for follow-up with them and/or the need for any referrals to a consulting specialist. The emergency department will also refer you to a specialist when appropriate. This referral assures that you have the opportunity for follow-up care with a specialist. All of these measure are taken in an effort to provide you with optimal care, which includes your follow-up. Under all circumstances we always encourage you to contact your private physician who remains a resource for coordinating your care. When calling for follow-up care, please make the office aware that this follow-up is from your recent emergency room visit. If for any reason you are refused follow-up, please contact the [facility] Emergency Department at and asked to speak to the emergency department charge nurse. [facility] Primary [facility] [address] [place] [id number] [address] [facility] Specialty Care - Orthopedic Clinic Professional Building [address] [place] [address], [address] [place] [address] 1. Rest, ice, elevate the affected extremity. You can apply ice 15 minutes on, 15 minutes off. Use the splint you have until orthopedic evaluation. 2. Tylenol and/or Ibuprofen as directed for pain management or discomfort. 3. Follow up with the Orthopedic provider as discussed. Return to the ED as needed and as discussed. Sepsis Event Note (ED) - Evaluation Sepsis Screening Result: No Definite Risk - Focused Exam Vital Signs: Vital Signs Temp Pulse Resp BP Pulse Ox 12/05/20 21:05 98.0 F 80 18 121/74 98
== END 2020-12-05 21:51 | disposition home or self-care (01) ==
LOC: MW.ED 20:53
DX: M25.532 Pain in left wrist (principal); E66.9 Obesity, unspecified; Z68.41 Body mass index [BMI] 40.0-44.9, adult
CPT/HCPCS: 99282; 99283

== ENCOUNTER 2022-05-13 00:21 | Emergency (ER) | payer MEDICAID ==
[2022-05-13] MEDS ORDERED: Albuterol/Ipratropium 3.0-0.5 MG/3 ML Neb Soln NEB ONE (01:52)
[2022-05-13] MEDS ORDERED: Ibuprofen 600 MG Tab PO ONE (02:08)
[2022-05-13] MEDS ORDERED: Albuterol 8 GM Inhaler INH ONE (03:18)
== END 2022-05-13 03:32 | disposition home or self-care (01) ==
LOC: MW.ED 00:21
DX: U07.1 COVID-19 (principal); E66.9 Obesity, unspecified; Z68.41 Body mass index [BMI] 40.0-44.9, adult; Z90.49 Acquired absence of other specified parts of digestive tract
CPT/HCPCS: 71045; 87635; 99285; A9270; J7620-GY; U0002

== ENCOUNTER 2022-06-20 08:34 | Emergency (ER) | payer MEDICAID ==
[2022-06-20] MEDS ORDERED: Ibuprofen 600 MG Tab ONE (09:18)
[2022-06-20] MEDS: Ibuprofen 600 MG Tab PO ONE (09:19)
== END 2022-06-20 10:54 | disposition home or self-care (01) ==
LOC: MW.ED 08:34
DX: R07.81 Pleurodynia (principal); N63.31 Unspecified lump in axillary tail of the right breast; E66.9 Obesity, unspecified; Z68.41 Body mass index [BMI] 40.0-44.9, adult; Z86.16 Personal history of COVID-19; Z90.49 Acquired absence of other specified parts of digestive tract
CPT/HCPCS: 71046; 99283; A9270

== ENCOUNTER 2023-02-04 17:45 | Emergency (ER) | payer MEDICAID | END 2023-02-04 18:43 | disposition home or self-care (01) | LOC: MW.ED 17:45 | DX: K04.7 Periapical abscess without sinus (principal); E66.9 Obesity, unspecified; Z68.41 Body mass index [BMI] 40.0-44.9, adult; Z86.16 Personal history of COVID-19 | CPT/HCPCS: 99282 ==

== ENCOUNTER 2023-03-01 03:16 | Emergency (ER) | payer MEDICAID ==
[2023-03-01] MEDS ORDERED: Ibuprofen 600 MG Tab PO ONE (03:56)
[2023-03-01] MEDS ORDERED: Acetaminophen 500 MG Tab PO ONE (03:56)
[2023-03-01 04:50] LABS: BASOPHILS ABSOLUTE AUTO 0.1 K/uL (0.0-0.1); BASOPHILS PERCENT AUTO 0.7 % (0.0-1.5); EOSINOPHILS ABSOLUTE AUTO 0.3 K/uL (0.0-0.7); EOSINOPHILS PERCENT AUTO 3.2 % (0.0-7.0); HEMATOCRIT 38.1 % (36.0-46.0); HEMOGLOBIN 12.5 g/dL (12.0-16.0); LYMPHOCYTES ABSOLUTE AUTO 4.9 K/uL (0.6-2.4); LYMPHOCYTES PERCENT AUTO 50.4 % (16.0-40.0); MEAN CORPUSCULAR HEMOGLOBIN 28.2 pg (27.0-32.0); MEAN CORPUSCULAR HGB CONC 32.8 g/dL (31.0-37.0); MEAN CORPUSCULAR VOLUME 85.8 fL (80.0-98.0); MONOCYTES ABSOLUTE AUTO 0.6 K/uL (0.0-0.8); MONOCYTES PERCENT AUTO 6.1 % (0.0-15.0); NEUTROPHILS ABSOLUTE AUTO 3.8 K/uL (1.4-5.7); NEUTROPHILS PERCENT AUTO 39.6 % (48.0-80.0); NRBC ABSOLUTE 0 K/uL; PLATELET COUNT,PLT 254 K/uL (150-400); RED BLOOD CELL COUNT 4.44 M/uL (4.30-5.90); WHITE BLOOD CELL COUNT,WBC 9.63 K/uL (4.0-11.0)
[2023-03-01] MEDS ORDERED: Amoxicillin/Clavulanate K 875-125 MG Tab PO ONE (05:06)
[2023-03-01 05:23] LABS: CALCIUM 9.5 mg/dL (8.5-10.1); CARBON DIOXIDE,CO2 26.9 mmol/L (21.0-32.0); CREATININE 0.8 mg/dL (0.6-1.0); EST CRCL DRUG DOSING (CG) 98.01 mL/min; POTASSIUM,K 3.9 mmol/L (3.5-5.1)
== END 2023-03-01 05:44 | disposition home or self-care (01) ==
LOC: MW.ED 03:16
DX: K02.9 Dental caries, unspecified (principal); K04.02 Irreversible pulpitis; E66.9 Obesity, unspecified; Z86.16 Personal history of COVID-19; Z68.41 Body mass index [BMI] 40.0-44.9, adult
CPT/HCPCS: 36415; 80048; 85025; 87040; 99283; A9270

== ENCOUNTER 2023-12-06 10:18 | Emergency (ER) | payer MEDICAID ==
[2023-12-06] MEDS: Sodium Chloride 0.9% 1,000 ML IV ONE (11:11)
[2023-12-06] MEDS: Ondansetron 4 MG/2 ML SDV IVPUSH ONE (11:11)
[2023-12-06] MEDS: Ketorolac 30 MG/ML SDV IVPUSH ONE (11:11)
[2023-12-06 11:23] LABS: BASOPHILS ABSOLUTE AUTO 0.03 K/uL (0.00-0.20); BASOPHILS PERCENT AUTO 0.3 % (0.0-1.0); EOSINOPHILS ABSOLUTE AUTO 0.78 K/uL (0.00-0.45); EOSINOPHILS PERCENT AUTO 8.4 % (0.0-6.0); HEMATOCRIT 42.1 % (37.0-47.0); IMMATURE GRAN ABSOLUTE AUTO 0.02 K/uL (0.00-0.05); IMMATURE GRAN PERCENT AUTO 0.2 % (0.0-0.4); LYMPHOCYTES ABSOLUTE AUTO 2.52 K/uL (1.00-4.80); LYMPHOCYTES PERCENT AUTO 27.2 % (24.0-44.0); MEAN CORPUSCULAR HEMOGLOBIN 28.7 pg (28.0-32.0); MEAN CORPUSCULAR HGB CONC 33.3 g/dL (32.0-36.0); MEAN CORPUSCULAR VOLUME 86.4 fL (83.0-99.0); MEAN PLATELET VOLUME 9.4 fL (9.4-12.3); MONOCYTES ABSOLUTE AUTO 0.55 K/uL (0.00-0.80); MONOCYTES PERCENT AUTO 5.9 % (0.0-8.0); NEUTROPHILS ABSOLUTE AUTO 5.38 K/uL (1.80-7.70); PLATELET COUNT,PLT 315 K/uL (150-400); RED BLOOD CELL COUNT 4.87 M/uL (4.10-5.30); WHITE BLOOD CELL COUNT,WBC 9.28 K/uL (3.9-11.3)
[2023-12-06 11:47] LABS: A/G RATIO 0.6 (0.9-1.6); ALBUMIN 3.3 g/dL (3.4-5.0); BILIRUBIN TOTAL 0.2 mg/dL (0.2-1.0); CARBON DIOXIDE,CO2 26.7 mmol/L (21.0-32.0); CREATININE 0.9 mg/dL (0.6-1.0); EST CRCL DRUG DOSING (CG) 82.99 mL/min; POTASSIUM,K 3.9 mmol/L (3.5-5.1); PROTEIN TOTAL,TP 8.5 g/dL (6.4-8.2)
[2023-12-06 11:48] LABS: BILIRUBIN,URINE NEGATIVE (NEGATIVE); COLOR,URINE YELLOW; GLUCOSE,URINE NEGATIVE (NEGATIVE); KETONES,URINE NEGATIVE (NEGATIVE); LEUKOCYTE ESTERASE,URINE NEGATIVE (NEGATIVE); NITRITE,URINE NEGATIVE (NEGATIVE); OCCULT BLOOD,URINE NEGATIVE (NEGATIVE); PROTEIN,URINE NEGATIVE (NEGATIVE); UROBILINOGEN,URINE 0.2 EU/dL (<2.0)
[2023-12-06 11:49] LABS: APPEARANCE,URINE HAZY
== END 2023-12-06 12:49 | disposition home or self-care (01) ==
LOC: MW.ED 10:18
DX: A08.4 Viral intestinal infection, unspecified (principal); E66.9 Obesity, unspecified; Z68.42 Body mass index [BMI] 45.0-49.9, adult; Z75.8 Other problems related to medical facilities and other health care; Z88.6 Allergy status to analgesic agent; Z86.16 Personal history of COVID-19; Z90.49 Acquired absence of other specified parts of digestive tract
CPT/HCPCS: 36415; 80053; 81003; 81025; 83690; 85025; 96361; 96374; 99284; J1885; J7030; J2405

== ENCOUNTER 2024-05-18 08:50 | Emergency (ER) | payer MEDICAID ==
[2024-05-18] MEDS: Ibuprofen 600 MG Tab PO ONE (09:23)
[2024-05-18] MEDS: Sulfamethoxazole/Trimethoprim 800-160 MG Tab PO ONE (09:23)
== END 2024-05-18 09:25 | disposition home or self-care (01) ==
LOC: MW.ED 08:50
DX: L73.2 Hidradenitis suppurativa (principal); R59.1 Generalized enlarged lymph nodes; E66.9 Obesity, unspecified; Z88.5 Allergy status to narcotic agent; Z75.8 Other problems related to medical facilities and other health care
CPT/HCPCS: 99283; A9270

== ENCOUNTER 2024-11-23 08:23 | Emergency (ER) | payer MEDICAID ==
[2024-11-23 09:31] LABS: BASOPHILS ABSOLUTE AUTO 0.06 K/uL (0.00-0.20); BASOPHILS PERCENT AUTO 0.8 % (0.0-1.0); EOSINOPHILS ABSOLUTE AUTO 0.68 K/uL (0.00-0.45); EOSINOPHILS PERCENT AUTO 9.4 % (0.0-6.0); HEMOGLOBIN 13.3 g/dL (12.0-16.0); IMMATURE GRAN ABSOLUTE AUTO 0.02 K/uL (0.00-0.05); IMMATURE GRAN PERCENT AUTO 0.3 % (0.0-0.4); LYMPHOCYTES ABSOLUTE AUTO 2.03 K/uL (1.00-4.80); LYMPHOCYTES PERCENT AUTO 28.2 % (24.0-44.0); MEAN CORPUSCULAR HEMOGLOBIN 29.5 pg (28.0-32.0); MEAN CORPUSCULAR HGB CONC 33.3 g/dL (32.0-36.0); MEAN CORPUSCULAR VOLUME 88.7 fL (83.0-99.0); MEAN PLATELET VOLUME 9.7 fL (9.4-12.3); MONOCYTES ABSOLUTE AUTO 0.39 K/uL (0.00-0.80); MONOCYTES PERCENT AUTO 5.4 % (0.0-8.0); NEUTROPHILS ABSOLUTE AUTO 4.03 K/uL (1.80-7.70); NEUTROPHILS PERCENT AUTO 55.9 % (41.0-71.0); PLATELET COUNT,PLT 291 K/uL (150-400); RED BLOOD CELL COUNT 4.51 M/uL (4.10-5.30); WHITE BLOOD CELL COUNT,WBC 7.21 K/uL (3.9-11.3)
[2024-11-23 09:45] LABS: INR 1.01 (0.86-1.11)
[2024-11-23 09:54] LABS: A/G RATIO 0.7 (0.9-1.6); ALBUMIN 3.4 g/dL (3.4-5.0); BILIRUBIN TOTAL 0.4 mg/dL (0.2-1.0); CALCIUM 9.1 mg/dL (8.5-10.1); CARBON DIOXIDE,CO2 28.8 mmol/L (21.0-32.0); CREATININE 0.9 mg/dL (0.6-1.0); EST CRCL DRUG DOSING (CG) 82.99 mL/min; POTASSIUM,K 4.5 mmol/L (3.5-5.1); PROTEIN TOTAL,TP 8.2 g/dL (6.4-8.2)
== END 2024-11-23 11:18 | disposition home or self-care (01) ==
LOC: MW.ED 08:23
DX: N92.1 Excessive and frequent menstruation with irregular cycle (principal); E66.9 Obesity, unspecified; Z68.39 Body mass index [BMI] 39.0-39.9, adult
CPT/HCPCS: 36415; 76856; 76856-26; 80053; 81025; 85025; 85610; 99283; 99284

== ENCOUNTER 2024-12-15 07:41 | Emergency (ER) | payer MEDICAID ==
[2024-12-15] MEDS: Ketorolac 30 MG/ML SDV IM ONE (08:12)
== END 2024-12-15 09:33 | disposition home or self-care (01) ==
LOC: MW.ED 07:41
DX: S29.011A Strain of muscle and tendon of front wall of thorax, initial encounter (principal); Z88.5 Allergy status to narcotic agent; Z79.899 Other long term (current) drug therapy; X50.0XXA Overexertion from strenuous movement or load, initial encounter; Y93.89 Activity, other specified
CPT/HCPCS: 71046; 71100; 96372; 99284; J1885

== ENCOUNTER 2024-12-31 08:24 | Emergency (ER) | payer MEDICAID ==
[2024-12-31 09:01] LABS: APPEARANCE,URINE SLT CLOUDY; BILIRUBIN,URINE NEGATIVE (NEGATIVE); COLOR,URINE YELLOW; GLUCOSE,URINE NEGATIVE (NEGATIVE); KETONES,URINE NEGATIVE (NEGATIVE); LEUKOCYTE ESTERASE,URINE NEGATIVE (NEGATIVE); NITRITE,URINE NEGATIVE (NEGATIVE); OCCULT BLOOD,URINE NEGATIVE (NEGATIVE); PH,URINE 6.5 (5.0-8.0); PROTEIN,URINE NEGATIVE (NEGATIVE); UROBILINOGEN,URINE 0.2 EU/dL (<2.0)
[2024-12-31] MEDS: Sodium Chloride 0.9% 1,000 ML IV ONE (09:03)
[2024-12-31] MEDS: Ondansetron 4 MG/2 ML SDV IVPUSH ONE (09:04)
[2024-12-31 09:09] LABS: BASOPHILS ABSOLUTE AUTO 0.05 K/uL (0.00-0.20); BASOPHILS PERCENT AUTO 1.1 % (0.0-1.0); EOSINOPHILS ABSOLUTE AUTO 0.29 K/uL (0.00-0.45); EOSINOPHILS PERCENT AUTO 6.7 % (0.0-6.0); HEMATOCRIT 42.4 % (37.0-47.0); HEMOGLOBIN 14.1 g/dL (12.0-16.0); IMMATURE GRAN ABSOLUTE AUTO 0.01 K/uL (0.00-0.05); IMMATURE GRAN PERCENT AUTO 0.2 % (0.0-0.4); LYMPHOCYTES ABSOLUTE AUTO 1.64 K/uL (1.00-4.80); LYMPHOCYTES PERCENT AUTO 37.7 % (24.0-44.0); MEAN CORPUSCULAR HEMOGLOBIN 29.3 pg (28.0-32.0); MEAN CORPUSCULAR HGB CONC 33.3 g/dL (32.0-36.0); MEAN CORPUSCULAR VOLUME 88.1 fL (83.0-99.0); MEAN PLATELET VOLUME 9.8 fL (9.4-12.3); MONOCYTES ABSOLUTE AUTO 0.58 K/uL (0.00-0.80); MONOCYTES PERCENT AUTO 13.3 % (0.0-8.0); NEUTROPHILS ABSOLUTE AUTO 1.78 K/uL (1.80-7.70); PLATELET COUNT,PLT 273 K/uL (150-400); RED BLOOD CELL COUNT 4.81 M/uL (4.10-5.30); WHITE BLOOD CELL COUNT,WBC 4.35 K/uL (3.9-11.3)
[2024-12-31 09:34] LABS: A/G RATIO 0.8 (0.9-1.6); ALBUMIN 3.6 g/dL (3.4-5.0); BILIRUBIN TOTAL 0.5 mg/dL (0.2-1.0); CALCIUM 8.7 mg/dL (8.5-10.1); CARBON DIOXIDE,CO2 28.1 mmol/L (21.0-32.0); CREATININE 0.8 mg/dL (0.6-1.0); EST CRCL DRUG DOSING (CG) 92.53 mL/min; POTASSIUM,K 4.7 mmol/L (3.5-5.1); PROTEIN TOTAL,TP 8.4 g/dL (6.4-8.2)
[2024-12-31] MEDS: Pantoprazole 40 MG in Sodium Chloride 0.9% 10 ML IVPUSH ONE (09:47)
== END 2024-12-31 10:08 | disposition home or self-care (01) ==
LOC: MW.ED 08:24
DX: R10.13 Epigastric pain (principal); Z88.5 Allergy status to narcotic agent; Z79.899 Other long term (current) drug therapy; Z90.49 Acquired absence of other specified parts of digestive tract; Z87.59 Personal history of other complications of pregnancy, childbirth and the puerperium
CPT/HCPCS: 36415; 80053; 81003; 81025; 83690; 83735; 84703; 85025; 96361; 96374; 96375; 99284; J2405; J2470; J7030; 99283

== ENCOUNTER 2025-03-19 09:05 | Emergency (ER) | payer MEDICAID ==
[2025-03-19] MEDS: Ketorolac 60 MG/2 ML SDV IM ONE (09:44)
== END 2025-03-19 09:59 | disposition home or self-care (01) ==
LOC: MW.ED 09:05
DX: M25.562 Pain in left knee (principal); Z90.49 Acquired absence of other specified parts of digestive tract; Z88.5 Allergy status to narcotic agent; Z79.899 Other long term (current) drug therapy
CPT/HCPCS: 96372; 99283; J1885